=== PATIENT | male | born 1955 | race Caucasian/White ===

== ENCOUNTER 2020-08-20 14:20 | Outpatient (CLI) | payer MEDICARE, OTHER, SELFPAY ==
--- NOTE | ~2020-08-20 | XR_ITS ---
EXAMINATION:[id number] DATE: 08/20/2020 15:34 INDICATION: Neck pain TECHNIQUE: AP, lateral, lateral swimmers and odontoid views of the cervical spine are provided. COMPARISON: None FINDINGS: There are 3 mm of retrolisthesis of C5 on C6. The odontoid is intact. No fracture is identi fied. There is moderate loss of intervertebral disc space height at C5-6. The vertebral body heights are normal. Degenerative osteophytes project from the anterior endplates of multiple vertebral bodies . There is moderate facet osteoarthritis at C2-3 and moderate to severe uncovertebral joint osteoarth ritis at C5-6. Prevertebral soft tissues are normal. IMPRESSION: 1. Moderate cervical spondylosis without acute findings. Reviewed, dictated and finalized at location A.
--- NOTE | ~2020-08-20 | US_ITS ---
EXAMINATION: US venous doppler LE EXAM DATE: 08/20/2020 15:26 INDICATION: Left leg pain and swelling. TECHNIQUE: Multiple grayscale, color flow and Doppler images of the lower extremity deep venous syste ms bilaterally were obtained and reviewed. There is no prior study for comparison. FINDINGS: Right side: The right common femoral, femoral and profunda veins demonstrate normal color flow, respi ratory variation, augmentation and compressibility. Compressibility, color flow confirmed within the right popliteal, posterior tibial, peroneal, and greater saphenous veins. Left side: The left common femoral, femoral and profunda veins demonstrate normal color flow, respira tory variation, augmentation and compressibility. Compressibility, color flow confirmed within the l eft popliteal, posterior tibial, peroneal, and greater saphenous veins. IMPRESSION: 1. No lower extremity deep venous thrombosis bilaterally. Reviewed, dictated and finalized at location B.
== END 2020-08-20 14:21 | disposition home or self-care (01) ==
LOC: ANHIMG 14:31
PROVIDERS: PCP Family Medicine; Visit Provider Physician Assistant Medical
DX: M54.2 Cervicalgia (principal); M47.812 Spondylosis without myelopathy or radiculopathy, cervical region; M79.89 Other specified soft tissue disorders; Z86.718 Personal history of other venous thrombosis and embolism
CPT/HCPCS: 72040; 93970

== ENCOUNTER 2020-09-21 15:06 | Outpatient (CLI) | payer MEDICARE, OTHER, SELFPAY ==
--- NOTE | ~2020-09-21 | US_ITS ---
EXAMINATION: US venous doppler [facility] DATE: 09/21/2020 15:50 INDICATION: Left lower limb erythema. TECHNIQUE: Grayscale ultrasound images without and with compression and Doppler ultrasound images of the left lower extremity veins were obtained. COMPARISON: Ultrasound 08/20/2020 FINDINGS: The visualized portions of left common femoral vein, profunda (deep) femoral vein, femoral vein, popl iteal vein, peroneal veins, and posterior tibial veins are patent. There is thrombus in left greater saphenous vein. IMPRESSION: 1. No deep venous thrombosis. 2. Thrombus in left greater saphenous vein, which is a superficial vein. Reviewed, dictated and finalized at location A. H POLISHER
== END 2020-09-21 15:07 | disposition home or self-care (01) ==
PROVIDERS: PCP Family Medicine; Visit Provider Nurse Practitioner Family
DX: I83.11 Varicose veins of right lower extremity with inflammation (principal); M79.89 Other specified soft tissue disorders; I82.812 Embolism and thrombosis of superficial veins of left lower extremity
CPT/HCPCS: 93971

== ENCOUNTER 2022-02-28 13:25 | Emergency (ER) | payer MEDICARE, OTHER, SELFPAY ==
[2022-02-28 13:40] VITALS: BP 98/65; PULSE 114; RESP 18; TEMP 36.5; O2SAT 97
--- NOTE | 2022-02-28 13:40 | ED.EYEPROB ---
HPI - Eye Problem General Chief complaint: Eye Problems Stated complaint: knot on rt bottom eye lid Time Seen by Provider: 02/28/22 13:40 Source: patient Mode of arrival: ambulatory Limitations: no limitations History of Present Illness HPI Narrative: 66 y/o male presented for c/o red knot to right lower eyelid, onset 2 weeks. States it started out itching then developed into the nodule. Endorses intermittent crusted drainage to eye in the morning. Pain is minimal, continues to report itching. Denies vision changes or FB sensation. Has used OTC Stye ointment but states it is getting bigger, also applying warm compresses to the site. Fady montero MD chief complaint: eye pain Related Data Home Medications Medication Instructions Recorded Confirmed aspirin 81 mg tablet,delayed 81 mg PO DAILY 11/08/19 02/28/22 release quinapril 20 mg PO DAILY 02/28/22 Allergies Allergy/AdvReac Type Severity Reaction Status Date / Time No Known Allergies Allergy Verified 02/28/22 13:48 Review of Systems Review of Systems: CONSTITUTIONAL: Denies body aches, fever, chills EYES:Endorses swelling, redness and pain to right lower eye; denies FB sensation, photophobia, or visual changes ENT: Denies rhinorrhea, congestion, sore throat, or otalgia. CARDIOVASCULAR: Denies chest pain, palpitations RESPIRATORY: Denies cough or dyspnea. GASTROINTESTINAL: Denies abdominal pain, nausea, vomiting, or diarrhea. SKIN: Denies rash, itching, or wounds. MUSCULOSKELETAL: Denies back pain, joint pain, or myalgia. NEUROLOGIC: Denies headache, numbness, tingling, or weakness. PSYCH: Denies depression or anxiety. All systems reviewed & are unremarkable except as noted in HPI and below [facility] Past Medical History Medical History BMI 33.0-33.9,adult BMI 34.0-34.9,adult BMI 35.0-35.9,adult Essential (primary) hypertension Herpes zoster without complication Mixed hyperlipidemia Stage 4 chronic kidney disease Testicular hypofunction Thrombophlebitis Type 2 diabetes mellitus without complications Varicosities of leg Family History Family History Mother Hypertension Family history of diabetes mellitus in first degree relative History of kidney cancer Father Family history of lung cancer Family history of coronary artery disease Sibling Diabetes mellitus Cervical cancer Daughter No problems noted. Other Family history of heart disease in male family member before age 55 Social History Social History Alcohol intake: never Additional occupation/education comments: [employer] Gender identity (if verbalized by the patient): Male Comments At time of signature, I have reviewed and agree with nursing past medical, surgical, social and family history unless otherwise noted. Please see nursing chart for further information. There is no relevant family history pertinent to the presenting complaint Exam Narrative: GENERAL: Well-appearing, well-nourished HEAD: Normocephalic, atraumatic. EYES: right external lower eye lid nodule approx 0.5cm diameter c/w stye, firm/nontender, appears to be pushing into the internal lower eyelid surface, no active drainage, Right lower palpebral conjunctival injection. PERRLA, EOMI. Lid eversion showed no FB. ENT: Mucous membranes pink and moist. No rhinorrhea. TMs normal bilaterally. Throat normal. Uvula midline. NECK: Normal AROM. Supple. CHEST: No respiratory distress. Clear to auscultation. HEART: Regular rate and rhythm. ABDOMEN: Soft, nontender, nondistended MUSCULOSKELETAL: No bony tenderness. EXTREMITIES: Normal range of motion. SKIN: Warm, dry, no rash. Normal skin turgor. NEURO: No focal deficits. Alert and oriented x3. PSYCH: Normal affect. Course C
== END 2022-02-28 13:57 | disposition home or self-care (01) ==
PROVIDERS: Emergency Provider Nurse Practitioner Family; PCP Family Medicine
DX: H00.012 Hordeolum externum right lower eyelid (principal); E78.2 Mixed hyperlipidemia; I12.9 Hypertensive chronic kidney disease with stage 1 through stage 4 chronic kidney disease, or unspecified chronic kidney disease; E11.22 Type 2 diabetes mellitus with diabetic chronic kidney disease; N18.4 Chronic kidney disease, stage 4 (severe)
CPT/HCPCS: 99213; G0463

== ENCOUNTER 2022-06-03 07:33 | Outpatient (CLI) | payer MEDICARE, OTHER, SELFPAY ==
--- NOTE | 2022-06-03 07:49 | ECHO_ITS ---
Patient Info Name: Jose Miguel Blevins Age: 66 years : 1955 Gender: Male Ht: 70 in Wt: 234 lbs BSA: 2.32 m2 HR: 93 bpm BP: 121 / 85 mmHg Technical Quality: Good Exam Date: 06/03/2022 8:20 AM Exam Location: [facility] Patient Status: Outpatient Admit Date: 06/03/2022 Staff Ordering Physician: Naresh Johnson MD Sewage Plant Supervisor: Tiffanie Ferrara RDCS Attending Provider: PHYSICIAN, AUDIOLOGY ASSISTANT Referring Physician: Alex ASH; Exam Type: CA echo doppler color flow Study Info Indications R00.0 - Tachycardia, unspecified Complete two-dimensional, color flow and Doppler transthoracic echocardiogram is performed. Summary 1. Complete two-dimensional, color flow and Doppler transthoracic echocardiogram is performed. 2. Mild LVH, LV size is at upper limits of normal; normal LV systolic function, ejection fraction about 60-65%, global longitudinal strain is abnormal at -14%. Normal mitral valve structure, trivial MR. Normal aortic valve structure, no stenosis. Trivial TR, mild pulmonary hypertension, RVSP 43 mmHg. Left Ventricle Left ventricular chamber dimension is normal. Left ventricular systolic function is normal, estimated at 60-65%. There is mildly increased left ventricular wall thickness. Right Ventricle Right ventricular chamber dimension is normal. Right ventricular systolic function is normal. Left Atria Left atrial chamber dimension is normal. Right Atria Right atrial chamber dimension is normal. Aortic Valve The aortic valve is normal. There is no aortic valve stenosis. Pulmonic Valve The pulmonic valve is normal. Mitral Valve The mitral valve has normal leaflets. There is trace mitral valve regurgitation. Tricuspid Valve The tricuspid valve leaflets are normal. There is trace tricuspid valve regurgitation. Mild pulmonary hypertension, estimated pulmonary arterial systolic pressure is 43 mmHg. Pericardium/Pleural The pericardium appears epicardial fat pad. There is no pericardial effusion. Inferior Vena Cava Normal inferior vena cava with >50% collapse upon inspiration consistent with normal right atrial pressure, 10 mmHg. Aorta The aortic root size at the sinus of Valsalva is normal. Left Ventricular Outflow Tract Name Value Normal LVOT 2D LVOT Diameter 2.1 cm LVOT Doppler LVOT Peak Velocity 90 cm/s LVOT Peak Gradient 3 mmHg LVOT Mean Gradient 2 mmHg LVOT VTI 15 cm LVOT VTI/AV VTI Ratio 1.0 LVOT Stroke Volume 52 ml LVOT CO 4.7 l/min LVOT CI 2.0 l/min/m2 Pulmonic Valve Name Value Normal RVOT Doppler RVOT Peak Gradient 1 mmHg
--- NOTE | 2022-06-05 11:38 | WPDHOLTEREM ---
Holter/Event Monitor Holter/Event Monitor Date of procedure: 06/05/22 Holter/Event Procedure: 24 Hr Holter Monitor Diagnosis: Unspecified tachycardia Indications: Unspecified tachycardia Image/Tracing Quality: Good Finding: Patient was monitored for 24 hours. Average heart rate was 101 beats per minute with minimum heart rate 52 beats per minute reported at 6:27 a.m. and maximum heart rate 158 beats per minute. There were a total of 59 ventricular ectopic beats. Patient was in atrial fibrillation or flutter in 100% of the times. Longest pause 1.8 seconds. Patient did not report significant symptoms. Conclusion: Atrial fibrillation/flutter as described above. Patient was asymptomatic during the recording period.
== END 2022-06-03 07:34 | disposition home or self-care (01) ==
LOC: ANHCARD 07:38
PROVIDERS: PCP Family Medicine; Visit Provider Family Medicine
DX: R00.0 Tachycardia, unspecified (principal); R06.00 Dyspnea, unspecified; I48.92 Unspecified atrial flutter
CPT/HCPCS: 93225; 93226; 93306

== ENCOUNTER 2022-07-01 10:24 | Emergency (ER) | payer MEDICARE, OTHER, SELFPAY ==
--- NOTE | ~2022-07-01 | XR_ITS ---
XR hip RT min 2V 07/01/2022 10:53 Indication: Right hip pain Procedure: 2 views right hip Comparison: No prior studies for comparison. Findings: There is anatomic alignment. No significant joint space narrowing. No soft tissue abnormali ty. No foreign bodies. No fracture or traumatic malalignment. Impression: 1: No significant bone or joint abnormality. Reviewed, dictated and finalized at location B. Impression: 1: No significant bone or joint abnormality.
[2022-07-01 10:35] VITALS: BP 120/79; PULSE 82; RESP 18; TEMP 36.5; O2SAT 98
--- NOTE | 2022-07-01 11:04 | ED.LOWEXIN ---
HPI - Extremity Injury (Lower) General Chief Complaint: Extremity Injury, Lower Stated Complaint: right side leg,hip pain Source: patient, RN notes reviewed and old records reviewed Mode of arrival: ambulatory History of Present Illness HPI Narrative: 66 year old male who presents to [facility] with pain to right upper thigh below buttock.Patient reports that he was pushing his right shoe off with left foot after going golfing and felt pain to area below right buttock a few weeks ago. He reports yesterday he was moving some boxes at home and felt a pop in the same area. Patient reports that he has taken Tylenol and rates his pain as 8/10 constant ache. Patient denies any pain to lower back, along spinal area or in SI joint region. Patient reports that he does have new onset of atrial flutter and was started on Eliquis on 06/20/[address]22 by alley worker. complaint: other (pain to right upper medial thigh below buttock) Onset (ago): week(s) (few weeks ago with increased intensity since yesterday) Severity scale (1-10): 8 Treatments prior to arrival: other (Tylenol) Related Data Home Medications Medication Instructions Recorded Confirmed apixaban 5 mg tablet (Eliquis) 5 mg DIRECTED 07/01/22 07/01/22 metoprolol tartrate 25 mg tablet 25 mg DIRECTED 07/01/22 07/01/22 Allergies Allergy/AdvReac Type Severity Reaction Status Date / Time No Known Allergies Allergy Verified 05/02/22 10:26 Review of Systems Review of Systems: CONSTITUTIONAL: Denies fever, chills, or sweats. EYES: Denies visual changes, redness, or discharge. ENT: Denies rhinorrhea, congestion, sore throat, or otalgia. CARDIOVASCULAR: Denies chest pain, palpitations, or edema. RESPIRATORY: Denies cough or dyspnea. GASTROINTESTINAL: Denies abdominal pain, nausea, vomiting, or diarrhea. GENITOURINARY: Denies dysuria or hematuria. SKIN: Denies rash or itching. MUSCULOSKELETAL: Denies back pain, joint pain, or myalgia, positive for pain to right posterior upper thigh below buttock NEUROLOGIC: Denies headache, numbness, or weakness. PSYCHIATRIC: Denies anxiety or depression. All systems reviewed & are unremarkable except as noted in HPI and below [facility] Past Medical History Medical History (Updated 07/02/22 @ 00:00 by Yari Dacameron) Atrial flutter BMI 33.0-33.9,adult BMI 34.0-34.9,adult BMI 35.0-35.9,adult COVID-19 Dyspnea on exertion Essential (primary) hypertension Herpes zoster without complication Irritable Mixed hyperlipidemia Scalp lesion Stage 4 chronic kidney disease Tachycardia Testicular hypofunction Thrombophlebitis Type 2 diabetes mellitus without complications Varicosities of leg Surgical History Surgical History (Updated 07/02/22 @ 08:14 by Suki Velazquez NP) H/O varicose vein ligation and stripping Hx of umbilical hernia repair Family History Family History Mother Hypertension Family history of diabetes mellitus in first degree relative History of kidney cancer Father Family history of lung cancer Family history of coronary artery disease Sibling Diabetes mellitus Cervical cancer Daughter No problems noted. Other Family history of heart disease in male family member before age 55 Social History Social History Smoking status: Never smoker Alcohol intake: never Additional occupation/education comments: [employer] Gender identity (if verbalized by the patient): Male Comments At time of signature, agree with nursing past medical, surgical, social and family history. There is no relevant family history pertinent to the presenting complaint Exam Narrative: GENERAL: Well-appearing, well-nourished, and in no acute distress. HEAD: Normocephalic, atraumatic. EYES: PERRLA and EOMI. ENT: Nares clear, no rhinorrhea or epistaxis. Mucous memb
== END 2022-07-01 11:41 | disposition home or self-care (01) ==
PROVIDERS: Emergency Provider Registered Nurse; PCP Family Medicine
DX: M79.651 Pain in right thigh (principal); I10 Essential (primary) hypertension; E78.2 Mixed hyperlipidemia; I12.9 Hypertensive chronic kidney disease with stage 1 through stage 4 chronic kidney disease, or unspecified chronic kidney disease; E11.22 Type 2 diabetes mellitus with diabetic chronic kidney disease; N18.4 Chronic kidney disease, stage 4 (severe); I80.9 Phlebitis and thrombophlebitis of unspecified site
CPT/HCPCS: 73502; 99213; G0463

== ENCOUNTER → 2022-07-14 11:12 | Outpatient (CLI) | payer MEDICARE, OTHER, SELFPAY ==
--- NOTE | ~2022-07-14 | XR_ITS ---
XR femur RT min 2V DATE: 07/14/2022 11:53 INDICATION: Right thigh pain TECHNIQUE: AP and lateral views of right femur COMPARISON: 07/01/2022 right hip FINDINGS: No fracture or dislocation, avascular necrosis or bone destruction of the right femur is de tected. Mild to moderate osteoarthritis at the right knee. IMPRESSION: Osteopenia Right knee osteoarthritis Reviewed, dictated and finalized at location B.
== END ==
PROVIDERS: PCP Family Medicine; Visit Provider Nurse Practitioner Family
DX: M85.851 Other specified disorders of bone density and structure, right thigh (principal); M17.11 Unilateral primary osteoarthritis, right knee
CPT/HCPCS: 73552

== ENCOUNTER 2022-07-28 03:08 | Day surgery (SDC) | payer MEDICARE, OTHER, SELFPAY ==
[2022-07-25 14:46] VITALS: BMI 33.7
[2022-07-28] VITALS (14 sets, daily range): BP systolic 91–125; BP diastolic 64–83; PULSE 67–91; RESP 12–21; TEMP 36.2; O2SAT 93–98; BMI 34.2
--- NOTE | 2022-07-28 07:00 | ECG_ITS ---
Measurements Intervals [place] Rate: 65 P: 50 ND: 251 QRS: 48 QRSD: 90 T: 35 QT: 375 QTc: 392 Interpretive Statements SINUS RHYTHM WITH FIRST DEGREE AV BLOCK DELAYED PRECORDIAL R/S TRANSITION ABNORMAL ECG COMPARED TO ECG 07/28/2022 07:25:25 SINUS RHYTHM NOW PRESENT FIRST DEGREE AV BLOCK NOW PRESENT Electronically Signed On 07-28-2022 12:29:19 CDT by Kevin Portillo D.O.
[2022-07-28 08:04] LABS: Anion Gap 15 mmol/L (8-16); Blood Urea Nitrogen 29 mg/dL (9-20); Calcium 9.6 mg/dL (8.4-10.2); Carbon Dioxide 21 mmol/L (22-30); Chloride 101 mmol/L (98-107); Estimated CRCL calculation 50 ml/min; Estimated Glomerular Filt Rate 43; Glucose 158 mg/dL (65-110); Magnesium 1.5 mg/dL (1.6-2.3); Potassium 4.6 mmol/L (3.4-5.0); Sodium 137 mmol/L (137-145)
[2022-07-28] MEDS: SODIUM CHLORIDE 0.9% IV 1,000 ML 30 ML IV CONT (08:20)
--- NOTE | 2022-07-28 08:45 | ECG_ITS ---
Measurements Intervals [place] Rate: 95 P: [place]: 0 QRS: -52 QRSD: 94 T: 32 QT: 353 QTc: 446 Interpretive Statements ATRIAL FLUTTER WITH NORMAL VENTRICULAR RATE LEFT ANTERIOR FASCICULAR BLOCK [QRS AXIS <= -45, QR IN I, RS IN II] INFERIOR INFARCT, AGE INDETERMINATE BASELINE ARTIFACT- II, III ABNORMAL ECG NO PREVIOUS ECG AVAILABLE FOR COMPARISON Electronically Signed On 07-28-2022 7:56:04 CDT by Kevin Portillo D.O.
--- NOTE | 2022-07-28 08:55 | WPDMODSED ---
Moderate Sedation Note-Pt Data Patient Data Diagnosis: Atrial flutter Present Complaint: Fatigue History and physical update: Patient is a pleasant 66-year-old male with history of FRANCISCO on CPAP, CKD stage 3, hypertension, hyperlipidemia, and diabetes mellitus with recent diagnosis atrial flutter of unknown duration started on anticoagulation and metoprolol who has been anticoagulated without interruption for greater than 4 weeks. He is referred for outpatient elective electrical cardioversion. He has brought his CPAP unit from home to utilize during procedure. Impression/plan of care: Atrial flutter-elective electrical cardioversion. Recommendations to follow. Discussed outpatient referral for ablation with recurrence or unacceptable symptoms. Continue systemic anticoagulation without interruption and particular for the next 30 days post cardioversion to reduce embolic stroke risk. Hypomagnesemia-2 g IV magnesium supplementation FRANCISCO on CPAP-CPAP unit to be worn during procedure. Anticipate discharge home post procedure with post anesthesia precautions. All questions answered to patient's satisfaction. Procedure to be performed/Plan: Elective electrical cardioversion Allergies Allergy/AdvReac Type Severity Reaction Status Date / Time No Known Allergies Allergy Verified 07/28/22 07:43 Home Medications Medication Instructions Recorded Confirmed Type blood sugar diagnostic #100 ea 06/04/21 07/25/22 Rx blood sugar diagnostic #100 ea 06/06/21 07/25/22 Rx glimepiride 2 mg tablet 2 mg PO BID #180 tabs 01/16/22 07/25/22 Rx lancets (OneTouch UltraSoft #100 ea 02/07/22 07/25/22 Rx Lancets) quinapril 20 mg tablet 20 mg PO DAILY #90 tabs 04/27/22 07/25/22 Rx pioglitazone 15 mg tablet 15 mg PO DAILY #90 tabs 05/02/22 07/25/22 Rx sitagliptin 100 mg-metformin ER 1 tablet PO DAILY #90 tabs 05/02/22 07/25/22 Rx 1,000 mg tablet,extended [id number] (Janumet XR) apixaban 5 mg tablet (Eliquis) 5 mg PO BID 07/01/22 07/28/22 History metoprolol tartrate 25 mg tablet 25 mg PO BID 07/01/22 07/25/22 History omega-3 acid ethyl esters 1 gram 1 cap PO BID #180 caps 07/19/22 07/25/22 Rx capsule (Lovaza) atorvastatin 40 mg tablet 40 mg PO QPM 07/25/22 07/25/22 History cefdinir 300 mg capsule 300 mg PO Q12H #20 caps 07/25/22 07/25/22 Rx ferrous sulfate 27 mg iron tablet 27 mg PO 4XW 07/25/22 07/25/22 History magnesium 250 mg tablet 250 mg PO DAILY 07/25/22 07/25/22 History prasterone (dhea) 25 mg tablet 25 mg PO 3XW 07/25/22 07/25/22 History (DHEA) prednisone 10 mg tablet 30 mg PO DAILY #15 tabs 07/25/22 07/25/22 Rx testosterone cypionate 100 mg/mL 40 mg IM 2XW 07/25/22 07/25/22 History intramuscular oil testosterone enanthate 07/25/22 History testosterone propionate 07/25/22 History tizanidine 2 mg tablet 2 mg PO TID PRN muscle spasticity 07/25/22 07/25/22 Rx #30 tabs Current Medications: Active Medications Sodium Chloride (Normal Saline Iv) 1,000 mls @ 30 mls/hr IV CONT .Q24H GUNJAN Sedation/Anesthesia: No previous sedation/anesthesia problems (including family history). [facility] Past Medical History Medical History Atrial flutter BMI 33.0-33.9,adult BMI 34.0-34.9,adult BMI 35.0-35.9,adult COVID-19 Dyspnea on exertion Essential (primary) hypertension Herpes zoster without complication Irritable Mixed hyperlipidemia Scalp lesion Stage 4 chronic kidney disease Tachycardia Testicular hypofunction Thrombophlebitis Type 2 diabetes mellitus without complications Varicosities of leg Surgical History Surgical History H/O varicose vein ligation and stripping Hx of umbilical hernia repair Family History Family History Mother Hypertension Family history of diabetes mellitus in first degree relative History of kidney cancer Fathe
--- NOTE | 2022-07-28 09:02 | P.PCNCVR_ITS ---
Cardioversion Cardioversion Date of procedure: 07/28/22 Procedure: Elective electrical cardioversion Pre-op diagnosis: Atrial flutter Post-op diagnosis: Same Indications: Atrial flutter Description of procedure: Brief history present illness: Patient is a pleasant 66 yo WM DM, HTN, hyperlipidemia, atrial flutter referred for elective electrical cardioversion in attempt to restore sinus rhythm. Procedure in detail: After verbal and written informed consent was obtained the patient risks, benefits, and alternatives explained in detail the patient agreed to proceed with the plan of care as outlined above. Patient was evaluated at bedside in the [facility] procedure room. On examination, neck was supple with normal range of motion, no restrictions to opening of the oral cavity, jaw angle and posterior hypopharynx was clear. Lungs were clear to auscultation. Patient was placed in appropriate 30 to 45 degree angle in a supine position. Patient was monitored throughout the study with telemetry, oxygen saturation, end-tidal CO2 monitoring, blood pressure, heart rate, and respirations. Anterior and posterior defibrillator pads placed in the appropriate positions. After confirmation of adequate sedation electrical cardioversion was carried out without complication. Patient tolerated the procedure well without difficulty. Sedation: Moderate Sedation/Anesthesia administration: Patient denied previous intolerance or complications with anesthesia/sedation. Please see sedation note for documentation of the pre-procedure physical examination. A total of 3.5mg intravenous Versed and a total of 75 mcg intravenous Fentanyl in multiple divided doses was utilized for moderate sedation. Sedation start time was 0915 and end time was 0930 for a total of 15 minutes [id number] intra-procedure time. Sedation was administered by a qualified observer Papa Batista RN under my supervision with intra-procedure [id number] observation and management throughout the entirety of the procedure. There were no other issues or complications and patient tolerated the procedure well and sedation protocol well and I was present for the entirety. Findings: Elective electrical cardioversion: After confirmation of adequate sedation and persistence of atrial flutter, 150 joules synched biphasic energy x1 was delivered with immediate samaritan of sinus rhythm. Twelve lead EKG was obtained postprocedure confirming sinus rhythm. Complications: None Conclusion: Successful samaritan of sinus rhythm status post cardioversion with 150 joules synched biphasic energyx1. Continue systemic anticoagulation without interruption especially for the next 30 days post cardioversion. Continue current medical therapy. Twelve lead EKG in 1 week post cardioversion in the office as an outpatient.
--- NOTE | 2022-07-28 09:02 | WPDHPUPDATE1 ---
History and Physical Update Update Date/Time: 07/28/22 09:02 History and Physical has been reviewed, including an updated exam of the patient. There are NO changes in the patient's condition. Risks, benefits, and alternatives have been discussed and questions answered. Patient agrees to proceed with procedure.
[2022-07-28] MEDS: MAGNESIUM SULF 2 GM/WATER 50ML 2 GM/50 ML BAG IVPB (09:06)
== END 2022-07-28 11:45 | disposition home or self-care (01) ==
PROVIDERS: PCP Family Medicine; Visit Provider Internal Medicine Cardiovascular Disease
PROC: 5A2204Z Restoration of Cardiac Rhythm, Single (ICD-10-PCS; principal; 2022-07-28 08:30)
DX: I48.92 Unspecified atrial flutter (principal); I12.9 Hypertensive chronic kidney disease with stage 1 through stage 4 chronic kidney disease, or unspecified chronic kidney disease; E11.22 Type 2 diabetes mellitus with diabetic chronic kidney disease; N18.30 Chronic kidney disease, stage 3 unspecified; E78.2 Mixed hyperlipidemia; Z79.01 Long term (current) use of anticoagulants; G47.30 Sleep apnea, unspecified; Z79.84 Long term (current) use of oral hypoglycemic drugs
CPT/HCPCS: 36415; 80048; 83735; 92960; J2250; J2310; J3010; J3475; J7030

== ENCOUNTER → 2022-07-30 09:24 | Outpatient (CLI) | payer MEDICARE, OTHER, SELFPAY ==
--- NOTE | ~2022-07-30 | DEXA_ITS ---
Bone Density Report Name: GERA CID Age: 66 Sex: Male Ethnicity: White Date of : 1955 Indication: other specified disorders of bone density Referring Provider: Jazmine River Study: Bone densitometry was performed. Exam Date: July 30, 2022 Accession number: [id number] Bone Density: Region BMD T-score Z-score Classification AP Spine (L1-L4) 1.327 2.1 3.0 Normal Femoral Neck (Left) 0.951 0.2 1.3 Normal Total Hip (Left) 1.105 0.5 1.1 Normal Femoral Neck (Right) 0.939 0.1 1.2 Normal Total Hip (Right) 1.124 0.6 1.2 Normal Total Hip Mean 1.115 0.6 1.2 Normal World Health Organization criteria for BMD impression classify patients as: Normal (T-score at or above -1.0), Osteopenia (T-score between -1.0 and -2.5), or Osteoporosis (T-score at or below -2.5). 10-year Fracture Risk: FRAX not reported because: All T-scores for Spine Total, Hip Total, Femoral Neck at or above -1.0 Clinical Information Provided by Patient: Has used the following medications: HRT (i.e. estrogen/hormone therapy), Vitamin D, TESTOSTERONE Patient maximum height was 71 Drinks caffeinated beverages Impression: The patient has normal bone mass. Discussion: BONE DENSITY IS ABOVE THE MINIMUM DESIRABLE LEVEL AT ALL SKELETAL SITES TESTED. This patient?s bone mineral density is above the minimum desirable level (T-score -1.0 or better) at all sites measured. The patient should follow a healthful lifestyle (good nutrition with adequate calcium and vitamin D, and appropriate weight-bearing exercise). Follow-Up: Consider repeating this study in 5 years or sooner if there is some new clinical indication. Reported by: VENTURA on 07/30/2022 10:53:00 AM. Reviewed, dictated and finalized at location ARogelio [facility]Andrew
== END ==
PROVIDERS: PCP Family Medicine; Visit Provider Nurse Practitioner Family
DX: M85.80 Other specified disorders of bone density and structure, unspecified site (principal); M81.8 Other osteoporosis without current pathological fracture; Z13.820 Encounter for screening for osteoporosis; Z91.89 Other specified personal risk factors, not elsewhere classified
CPT/HCPCS: 77080

== ENCOUNTER 2023-01-21 14:30 | Outpatient (RCR) | payer MEDICARE, OTHER, SELFPAY ==
[2022-11-27 11:04] VITALS: BMI 34.4
[2022-11-27 14:07] VITALS: BMI 34.4
== END 2023-02-09 10:53 | disposition home or self-care (01) ==
LOC: ANHDMC 14:30
PROVIDERS: PCP Family Medicine; Visit Provider Family Medicine
DX: E11.65 Type 2 diabetes mellitus with hyperglycemia (principal); Z71.89 Other specified counseling; Z71.3 Dietary counseling and surveillance
CPT/HCPCS: 97802; 99199; G0108; G0109

== ENCOUNTER 2023-04-02 14:46 | Outpatient (RCR) | payer MEDICARE, OTHER, SELFPAY | END 2023-04-06 14:24 | disposition home or self-care (01) | LOC: ANHDMC 14:46 | PROVIDERS: PCP Family Medicine; Visit Provider Family Medicine | DX: E11.65 Type 2 diabetes mellitus with hyperglycemia (principal); Z71.89 Other specified counseling | CPT/HCPCS: G0109 ==

== ENCOUNTER 2024-10-20 10:33 | Outpatient (CLI) | payer MEDICARE, OTHER, SELFPAY ==
--- NOTE | ~2024-10-20 | XR_ITS ---
Right Shoulder Technique: AP and scapular Y views were obtained. Clinical History: Enthesopathy Findings: No fracture or dislocation is seen. Osseous alignment is anatomic. The glenohumeral and acr omioclavicular joint spaces are preserved. Soft tissues are unremarkable. Impression: Unremarkable right shoulder radiographs. Reviewed, dictated and finalized at location . UNITY RESOURCE OFFICER Impression: Unremarkable right shoulder radiographs.
--- NOTE | ~2024-10-20 | XR_ITS ---
AP and lateral views of the right hip Clinical history: Pain Findings: No acute fracture or dislocation is seen. Osseous alignment is anatomic. Right hip joint is intact. Soft tissues are unremarkable. Impression: No significant abnormality is seen. Reviewed, dictated and finalized at location M. S AND MARKETING AGENT Impression: No significant abnormality is seen.
== END 2024-10-20 10:34 | disposition home or self-care (01) ==
PROVIDERS: PCP Family Medicine; Visit Provider Family Medicine
DX: M25.551 Pain in right hip (principal); M77.8 Other enthesopathies, not elsewhere classified; W19.XXXD Unspecified fall, subsequent encounter
CPT/HCPCS: 73030; 73502

== ENCOUNTER 2024-11-13 17:07 | Emergency (ER) | payer MEDICARE, OTHER, SELFPAY ==
--- NOTE | ~2024-11-13 | CT_ITS ---
History: Fall PROCEDURE: CT head without contrast. COMPARISON: None TECHNIQUE: Axial imaging of the head performed from the skull base to the vertex without IV contrast. Sagittal a nd coronal reformations obtained. DLP: 605 mGy-cm FINDINGS: The ventricles are normal in size, shape and position. There is no mass, mass effect or midline shift. There is no abnormal extra-axial fluid collection or intracranial hemorrhage. Air-fluid level within the right maxillary sinus. Remaining paranasal sinuses are clear. The mastoid air cells are well aerated. No acute displaced fractures within the overlying cranium. Impression: No acute intracranial hemorrhage or suspicious mass effect. Inflammatory disease within the right maxillary sinus Reviewed, dictated and finalized at location A. S COUNTRY/TRACK AND FIELD COACH Impression: No acute intracranial hemorrhage or suspicious mass effect. Inflammatory disease within the right maxillary sinus
--- NOTE | ~2024-11-13 | CT_ITS ---
History: Fall PROCEDURE: CT facial bones and cervical spine without intravenous contrast. COMPARISON: None TECHNIQUE: Multiple contiguous axial images of the cervical spine were performed without the administration of i ntravenous contrast. DLP: 517 mGy-cm FINDINGS: Straightening and slight reversal of the normal curvature of the cervical spine is identified, likely muscular in origin. No acute fractures are present. Degenerative disease is noted with osteophyte formation, disc space narrowing, endplate changes and f acet arthropathy Calcified granuloma within the right upper lobe. Remaining Bilateral lung apices are unremarkable. No soft tissue abnormality is present. The airway is unremarkable. Impression: Straightening and slight reversal of the normal curvature of the cervical spine, likely muscular in o rigin. No acute fracture. Reviewed, dictated and finalized at location A. T PICKLE MAKER Impression: Straightening and slight reversal of the normal curvature of the cervical spine , likely muscular in origin. No acute fracture.
[2024-11-13 17:07] VITALS: BP 155/76; PULSE 66; RESP 16; O2SAT 99
--- NOTE | 2024-11-13 19:55 | PC.NURSE ---
pt arrives to ed via pov with c/o of fall around noon 11/13/24. pt visitor has a video of fall. pt was walking around a gym when patient stumbled and lost balance. pt was unable to place ups to protect face from fall. pt hit face/ nose of concrete floor. pt denies loc. pt states that he remembers falling. pt is on zorolto. pt states that he had excessive bleeding from bilateral nares. 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 pt states sports coordinator was able to apply bilateral nasal tissue to help control the bleeding. pt states that staff trainer had to reapply tissues several times. upon arrival patient has bilateral nasal tissue in place with bleeding controlled at this time. pt also has bandaid applied at this time to the right lateral side of nose. pt also has some swelling to the area at this time where patient was wearing his glasses. pt is ao x4 at this time and able to ambulate with a steady unassisted gait to the room from triage.
--- NOTE | 2024-11-13 20:06 | ED_ITS ---
HPI - Fall General Chief Complaint: Fall Stated Complaint: fall Time Seen by Provider: 11/13/24 19:47 Source: patient Mode of arrival: ambulatory Limitations: no limitations History of Present Illness HPI Narrative: This is a 69-year-old male who presents to the ED for chief complaint of low fall that occurred this evening just prior to arrival. Patient was walking on the bleachers at a basketball game when he accidentally tripped. States he fell face 1st and injured his nose. Reports that he is on Xarelto and had a lot of bleeding from the nose but seems to have subsided. Denies LOC, numbness, weakness or any further site of injury. Related Data Home Medications ?Medication ?Instructions ?Recorded ?Confirmed ?Last Taken ?Type metoprolol tartrate 25 mg tablet 25 mg PO BID 07/01/22 10/20/24 07/25/22 History ferrous sulfate 27 mg iron tablet 27 mg PO 4XW 07/25/22 10/20/24 Unknown History prasterone (dhea) 25 mg tablet 25 mg PO 3XW 07/25/22 10/20/24 Unknown History (DHEA) magnesium 250 mg tablet 400 mg PO DAILY 02/27/23 10/20/24 Unknown History rivaroxaban 20 mg tablet (Xarelto) 20 mg PO DAILY 02/27/23 10/20/24 Unknown History multivitamin 1 tablet PO DAILY 07/04/24 10/20/24 Unknown History vit C 250 mg-vit E 200 unit-zinc 1 cap PO .QD 07/04/24 10/20/24 Unknown History ox 12.5 [id number] capsule (ICaps AREDS2) Allergies Allergy/AdvReac Type Severity Reaction Status Date / Time No Known Allergies Allergy Verified 10/20/24 07:28 Review of Systems Review of Systems: All systems as dictated in HPI [facility] Past Medical History Medical History (Updated 11/14/24 @ 00:00 by Background Daemon) Cerumen impaction Otitis media Atrial flutter Irritable Scalp lesion COVID-19 Dyspnea on exertion Tachycardia Testicular hypofunction Herpes zoster without complication Thrombophlebitis Varicosities of leg Essential (primary) hypertension Mixed hyperlipidemia Stage 4 chronic kidney disease Type 2 diabetes mellitus without complications Surgical History Surgical History Hx of umbilical hernia repair H/O varicose vein ligation and stripping Family History Family History Mother Hypertension Family history of diabetes mellitus in first degree relative History of kidney cancer Diabetes mellitus Father Family history of lung cancer Family history of coronary artery disease Sibling Diabetes mellitus Cervical cancer Cerebrovascular accident Daughter No problems noted. 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) Alcohol intake: never Substance use: never Substance use type: does not use Do You Feel Safe in your Home?: Yes Lack of Transportation: No Lack of Food: Never True Current Housing: I Have Housing Concerned About Future Housing: No Difficulty Paying Gas/Electric Bills: No Difficulty Paying for Meds: No Currently Unemployed: No Education: Associate Degree Difficulty w/ Childcare or Family Care: No Living arrangements: with family Occupation/Education: retired Additional occupation/education comments: [employer] Gender identity (if verbalized by the patient): Male Spiritual care concerns: No Exam Narrative: GENERAL: Well-appearing, well-nourished, and in no acute distress. HEAD: Normocephalic, atraumatic. EYES: PERRLA and EOMI. ENT: Mild swelling to the anterior superior nose. No septal hematoma. No active bleeding. No crepitus or deformity Nares clear, no rhinorrhea or epistaxis. Mucous membranes moist. Oropharynx without tonsillar hypertrophy exudate or other lesions. NECK: Supple. No adenopathy or masses. CHEST: No respiratory distress. Clear to auscultation. No wheezes rales or rhonchi HEART: Regular rate and rhythm. No murmur heard. Normal peripheral pulses. ABDOMEN: Soft, nontender, nondistended, normal active bowel sounds. MSK: Normal range of motion. No edema. SKIN: Warm, dry, no rash. NEURO: Alert and oriented x4. No focal deficits. PSYCH: Normal mood and affect. Course Vital Signs Vital signs: Vital Signs Pulse Rate 66 11/13/24 17:07 Respiratory Rate 16 11/13/24 17:07 Blood Pressure 155/76 H 11/13/24 17:07 Pulse Oximetry 99 11/13/24 17:07 Pulse Rate 66 11/13/24 17:07 Respiratory Rate 16 11/13/24 17:07 Blood Pressure 155/76 H 11/13/24 17:07 Pulse Oximetry 99 11/13/24 17:07 MDM - Fall MDM Narrative Medical decision making narrative: 69-year-old male who presents to the ED for head injury/nose injury after ground level fall today. Vitals are normal. Exam remarkable for the above. No neurologic deficits. CT imaging of the facial bones, cervical spine and brain are without acute findings. Patient was given tetanus update. Also given Afrin, loratadine in order to prevent any further epistaxis. Pt will be discharged in stable condition. Return precautions given and supportive measures discussed. Pt is understanding and agreeable with plan for discharge and follow-up with PCP. Discharge Plan Discharge Clinical Impression: Fall, Facial injury, Epistaxis Patient Disposition: Home, Self-Care Condition: Stable Instructions: Antibiotic Form Additional Instructions: Exam and imaging are reassuring today. Please refrain from blowing the nose and take antihistamine such as Zyrtec at home. Follow-up with PCP. Use Tylenol regularly for pain control. If you have any new or worsening symptoms please return to the ER for further evaluation. Patient Language: Pashto Prescriptions: No Action metoprolol tartrate 25 mg tablet 25 mg PO BID multivitamin Tablet 1 tablet PO DAILY ICaps AREDS2 250 mg-200 unit -12.5 mg-1 mg capsule 1 cap PO .QD Mounjaro 7.5 mg/0.5 mL pen injector See Rx Instructions .ROUTE .COMPLEX Qty: 6 3RF Dose Instruction: 7.5 MG (0.5 ML) SUBCUTANEOUSLY WEEKLY Rx Instructions: 7.5 MG (0.5 ML) SUBCUTANEOUSLY WEEKLY Xarelto 20 mg tablet 20 mg PO DAILY prasterone (dhea) [DHEA] 25 mg Tablet 25 mg PO 3XW Patient Comments: alternates with iron sulfate ferrous sulfate 27 mg iron Tablet 27 mg PO 4XW Patient Comments: alternates with DHEA magnesium 250 mg tablet 400 mg PO DAILY (DME) blood sugar diagnostic Strip See Rx Instructions .ROUTE .MEDSUPPLY Qty: 100 3RF Rx Instructions: Daily metformin 500 mg tablet extended release 24 hr 2,000 mg PO DAILY Qty: 360 3RF pioglitazone 30 mg tablet 30 mg PO DAILY Qty: 90 3RF (DME) lancets Misc See Rx Instructions .Route Qty: 100 3RF Rx Instructions: Use daily to assess blood glucose bid benazepril 20 mg tablet 20 mg PO DAILY Qty: 90 1RF glimepiride 2 mg tablet 2 mg PO QAM Qty: 90 1RF (DME) blood sugar diagnostic Strip See Rx Instructions .ROUTE .MEDSUPPLY Qty: 100 2RF Rx Instructions: bid for diabetes atorvastatin 40 mg tablet 40 mg PO QPM Qty: 90 0RF omega-3 acid ethyl esters [Lovaza] 1 gram capsule 1 cap PO BID Qty: 180 1RF Follow-up/Referrals: Naresh Johnson MD [Primary Care Provider] - Time of Disposition: 20:13
[2024-11-13] MEDS: TETANUS,DIPHTHERIA,AC PERTUSSIS ADULT (0.5 ML) BOOSTRIX IM (20:37)
[2024-11-13] MEDS: LORATADINE 10 MG TABLET PO (20:37)
[2024-11-13] MEDS: OXYMETAZOLINE HCL 0.05% NAS 15 ML BTL (*BKC) 1 SPRAY NASAL (20:38)
== END 2024-11-13 20:48 | disposition home or self-care (01) ==
LOC: ANHED 20:17
PROVIDERS: Emergency Provider Physician Assistant; PCP Family Medicine
DX: S09.92XA Unspecified injury of nose, initial encounter (principal); R04.0 Epistaxis; W19.XXXA Unspecified fall, initial encounter; Z79.01 Long term (current) use of anticoagulants; E78.2 Mixed hyperlipidemia; I48.92 Unspecified atrial flutter; N18.4 Chronic kidney disease, stage 4 (severe); I12.9 Hypertensive chronic kidney disease with stage 1 through stage 4 chronic kidney disease, or unspecified chronic kidney disease; E11.22 Type 2 diabetes mellitus with diabetic chronic kidney disease; Z23 Encounter for immunization
CPT/HCPCS: 70450; 70486; 72125; 90471; 90715; 99284; A9270

== ENCOUNTER 2025-04-23 01:27 | Emergency (ER) | payer MEDICARE, OTHER, SELFPAY ==
[2025-04-23] VITALS (7 sets, daily range): BP systolic 101–128; BP diastolic 64–74; PULSE 72–90; RESP 15–20; TEMP 36.5; O2SAT 94–97
--- NOTE | ~2025-04-23 | CT_ITS ---
Clinical Indication: Chest pain, back pain CT Scan of the Chest, Abdomen, and Pelvis with Contrast: Technique: Contiguous sections were acquired throughout the chest, abdomen, and pelvis after intraven ous administration of 100 cc of Omnipaque 350. Dose reduction technique was used on this scan by shauna beltre automated exposure control and iterative reconstruction technique. The dose-length product (DL P) was 1603.58 mGy-cm. Findings: There is no evidence of any significant mediastinal, hilar or axillary lymphadenopathy. The mediastin al soft tissues appear normal. No pulmonary embolus seen. No aortic aneurysm or dissection. There is no evidence of pleural or pericardial effusion. The lungs are clear, aside from mild bibasilar atelectatic change. The liver, spleen, pancreas, gallbladder, adrenals and right kidney are within normal limits. Inaja left kidney is markedly atrophic. No evidence of aortic aneurysm or dissection. No lymphadenopathy. No bowel obstruction or bowel wall thickening. There is no evidence to suggest acute appendicitis. Urinary bladder is unremarkable. No pelvic mass seen. No ascites. Impression: No acute abnormality. Markedly atrophic mechoopda left kidney. Reviewed, dictated and finalized at [facility]. Impression: No acute abnormality. Markedly atrophic mechoopda left kidney.
--- NOTE | ~2025-04-23 | XR_ITS ---
Clinical Indication: Chest pain PA and lateral views of the chest: Comparison: None Findings: The lungs are clear, without evidence of focal consolidation or pleural effusion. Cardiome diastinal silhouette is within normal limits. Bones and soft tissues are unremarkable. Impression: Normal chest. Reviewed, dictated and finalized at location . Impression: Normal chest.
--- NOTE | 2025-04-23 01:28 | ECG_ITS ---
Test Date: 2025-04-23 01:39:13 Measurements Intervals Ethel Rate: 86 P: 38 CO: 242 QRS: 14 QRSD: 88 T: 34 QT: 341 QTc: 409 Interpretive Statements SINUS RHYTHM WITH FIRST DEGREE AV BLOCK BASELINE ARTIFACT- I, II, III, AVR, AVF BORDERLINE ECG No previous ECG available for comparison Electronically Signed On 04-23-2025 07:08:04 CDT by Kevin Portillo D.O.
--- OUTSIDE RECORDS SUMMARY | 2025-04-23 01:29 | XMS_ITS | Clinical Summary ---
Author Organization [facility] Office Center Address [address] [place] [address] Care Team Providers Care Head Tennis Professional Name Role Phone Naresh Johnson MD Primary Care Provider [phone] Allergies No known active allergies Medications pioglitazone (ACTOS) 30 mg tablet 1 tablet (30 mg total) 9 Active omega-3 fatty acids (LOVAZA) 1 gram capsule 0 Active glimepiride (AMARYL) 2 mg tablet 0 Active atorvastatin (LIPITOR) 40 mg tablet 0 Active blood glucose diagnostic (OneTouch Ultra Blue Test Strip) strip USE 1 STRIP TO CHECK GLUCOSE ONCE DAILY 0 Active benazepriL (LOTENSIN) 20 mg tablet 3 Active tirzepatide (MOUNJARO) 7.5 mg/0.5 mL pen injector injection 0.5 mL (7.5 mg total) 3 Active metFORMIN (GLUCOPHAGE) 500 mg tablet Take 1 tablet (500 mg total) by mouth 2 (two) times a day with meals Two tablets in the morning and two tablets in the evening Active rivaroxaban (XARELTO) 20 mg tablet Take 1 tablet (20 mg total) by mouth daily with dinner 90 tablet 3 4 Active metoprolol tartrate (LOPRESSOR) 25 mg immediate release tablet Take 1 tablet by mouth twice daily 180 tablet 5 Active metoprolol tartrate (LOPRESSOR) 25 mg immediate release tablet Take 1 tablet (25 mg total) by mouth 2 (two) times a day 180 tablet 2 4 04/11/20 Discontinued Active Problems Problem Noted Date Diagnosed Date Chronic anticoagulation 09/11/2022 History of cardioversion 07/28/2022 Atrial flutter 06/20/2022 Mixed diabetic hyperlipidemi a associated with type 2 diabetes mellitus 06/20/2022 FRANCISCO on CPAP 06/20/2022 Stage 3 chronic kidney disease 06/20/2022 Varicose veins of bilateral lower extremities wi th pain 11/10/2020 Assessment & Plan (01/28/2021 2:56 PM CDT): Impression: Patient recovering well status post right lower extremity EVLT with thigh store manager ligation. His surgical incisions have healed well. Plan: Continue ongoing compression regimen. Patient follow-up on as-needed basis. Assessment & Plan (11/10/2020 1:03 PM ORDINARY SEAMAN): Patient has recurrence extensive painful varicosities bilateral lower extremity specifically the right leg with an incompetent store manager mid thigh. He has failed conservative measures and I have recommended phlebectomies and store manager ligation right lower extremity. The procedure and all risks have been thoroughly explained. He understands And agrees to proceed Hypertensive chronic kidney disease with stage 1 through stage 4 chronic kidney disease, or unspecified chronic kidney disease 12/18/2015 Type 2 diabetes mellitus without complication Assessment & Plan (11/10/2020 1:02 PM ORDINARY SEAMAN): Currently controlled. Continue Actos and metformin Per PCP recommendations. Hypertension associated with diabetes 05/31/2012 Resolved Problems Problem Noted Date Diagnosed Date Resolved Date Other hyperlipidemia 12/18/2015 023 Overview (10/23/2020): Converted unresolved ICD9, potential mismatch. Assessment & Plan (11/10/2020 1:04 PM ORDINARY SEAMAN): Hyperlipidemia controlled. Continue statin therapy per PCP. Encounters Date Type Department Care Team Description 01/30/2025 8:00 AM CDT Office Visit [facility] Cardiology [address] [place] [address] Jose Miguel Lynn MD Atrial flutter, unspecified type (HCC) (Primary Dx); Need for lipid screening from Last 3 Months Immunizations Immunization Administration Dates Next Due Influenza, Quadrivalent, Spl it, Intramuscular 08/08/2019 Influenza, Split 08/02/2013 Influenza, Trivalent, IM (MDV) 01/14/2017,2015,01/03/2015 Surgical History Surgery Date Site/Laterality Comments VARICOSE VEIN SURGERY HERNIA REPAIR ENDOVENOUS ABLATION SAPHENOU S VEIN W/ LASER Bilateral gsv TONSILLECTOMY CATARACT EXTRACTION 11/16/2016 - 11/15/2017 Medical History Medical History Date Comments Hypertension Diabetes (HCC) Cataract 2017 Sleep apnea 2005 Atrial flutter (HCC) Covid Family History Medical History Relation Name Comments Diabetes Brother Mario Alberto Blevins Cancer Father Beronica Blevins Heart attack Father Beronica Blevins Hypertension Father Beronica Blevins Diabetes Maternal Grandmother Grandma Darlyn Cancer Mother Eduarda Blevins Clotting disorder Mother Eduarda Blevins Diabetes Mother Eduarda Blevins Hypertension Mother Eduarda Blevins Clotting disorder Paternal Grandmother Grandma Gen varicose vein Paternal Grandmother Grandma Gen Cancer Sister 1 Radha Blevins Cervical cancer Sister 1 Radha Blevins Diabetes Sister 1 Radha Blevins Stroke Sister 1 Radha Blevins Cancer Sister 2 Kenia Fu Diabetes Sister 2 Kenia Fu Relation Name Status Comments Brother Mario Alberto Blevins Father Beronica Blevins Maternal Grandmother Grandma Darlyn Mother Eduarda Blevins Paternal Grandmother Grandma Blevins Sister 1 Radha Blevins Alive Sister 2 Kenia Fu Social History Tobacco Use Types Packs/Day Years Used Date Smoking Tobacco: Never Smokeless Tobacco: Never Tobacco Cessation:Counseling Given: Not Answered Alcohol Use Standard Drinks/Week Comments Never 0 (1 standard drink = 0.6 oz pur e alcohol) Sex and Gender Information Value Date Recorded Sex Assigned at Not on file Legal Sex Male 6:06 PM ORDINARY SEAMAN Gender Identity Male 10/30/2020 6:30 PM ORDINARY SEAMAN Sexual Orientation Straight 10/30/2020 6: 30 PM ORDINARY SEAMAN Obstetrics History Last Filed Vital Signs Vital Sign Reading Time Taken Comments Blood Pressure 118/70 01/30/2025 8:03 AM CDT Pulse 75 01/30/2025 8:03 AM CDT Temperature - - Respiratory Rate - - Oxygen Saturation 98% 01/30/2025 8:03 AM CDT Inhaled Oxygen Concentration - - Weight 103.3 kg (227 lb 12.8 oz) 01/30/2025 8:03 AM CDT Height 177.8 cm (5' 10) 01/30/2025 8:03 AM CDT Body Mass Index 32.69 01/30/2025 8:03 AM CDT Plan of Treatment Health Maintenance Due Date Last Done Comments Albumin Creatinine Ratio, Urine 1954 Colon Cancer Screening-Colonoscopy 1954 Depression Screening 1954 Fall Risk Assessment 1955 Hemoglobin A1C 1954 Hepatitis C Screening 1955 eGFR 1955 Dilated Eye Exam 1954 Foot Exam 1954 DTaP/Tdap/Td Vaccine (1 - Tdap) 1965 Hepatitis B Screening 1972 Pneumococcal vaccine 65+ (1 of 2 - PCV) 1973 Zoster Vaccine (1 of 2) 2004 Well Visit 65+ 2019 Influenza Vaccine (Season Ended) 2025 08/24/2023, 08/08/2019, 01/14/2017, Additional history exists Lipid Panel 01/30/2026 01/30/2025, 08/18, 06/13/2022 Procedures Procedure Name Priority Date/Time Associated Diagnosis Comments POCT LIPID PANEL Routine 01/30/2025 9:26 AM CDT Need for lipid screening from Last 3 Months Results * POCT lipid panel (01/30/2025 9:26 AM CDT) Cholesterol, POC <100 mg/dL Comment:GLU = 104 HDL, POC 37 mg/dL Triglycerides, POC 87 mg/dL LDL Cholesterol POC 48 mg/dL Chol/HDL Ratio, POC N/A Non-HDL Cholesterol, POC N/A mg/dL Cholesterol Total, POC <100 mg/dL Capillary blood 01/30/2025 9 :26 AM CDT us Jose Miguel Lynn MD POINT OF CARE TEST ORDER BEATA Final Result from Last 3 Months Insurance MEDICARE [facility] MEDICARE [facility] Care Teams Head Tennis Professional Relationship Specialty Start Date End Date Naresh Johnson MD [address] [place] [address] PCP - General Family Medicine 04/14/24
--- OUTSIDE RECORDS SUMMARY | 2025-04-23 01:29 | XMS_ITS | Clinical Summary ---
Author Organization [facility] Address [address] [place] [address] Phone Care Team Providers Care Candy Cooker Helper Name Role Phone Naresh Johnson MD Primary Care Provider [phone] Allergies No known active allergies Medications glimepiride (AMARYL) 2 MG tablet 2 tabs/caps qday 0 01/03/2015 Active aspirin 81 MG tablet 1 tab/cap qday 07/17/2012 Active quinapril (ACCUPRIL) 20 MG tablet 1 tab/cap qday 07/17/2012 Active pioglitazone (ACTOS) 15 MG tablet 11/16/2018 Active atorvastatin (LIPITOR) 40 MG tablet 11/16/2018 Active ONETOUCH ULTRA test strip USE 1 STRIP TO CHECK GLUCOSE ONCE DAILY 05/08/2020 Active omega-3 acid ethyl esters (LOVAZA) 1 g capsule Take 1 g by mouth 2 (two) times a day 04/18/2021 Active Lancets (onetouch ultrasoft) lancets USE 1 TO CHECK GLUCOSE ONCE DAILY 05/18/2022 Active Janumet XR 100-1000 MG tablet sustained-relea se 24 hour 05/26/2022 Active TESTOSTERONE CYPIONATE & PROP IJ 03/22/2019 Active Active Problems Problem Noted Date Diagnosed Date Varicose veins of bilateral lower extremities wi th pain 11/10/2020 Overview (05/29/2021): Last Assessment & Plan: Patient has recurrence extensive painful varicosities bilateral lower extremity specifically the right leg with an incompetent soil science professor mid thigh. He has failed conservative measures and I have recommended phlebectomies and soil science professor ligation right lower extremity. The procedure and all risks have been thoroughly explained. He understands And agrees to proceed Last Assessment & Plan: Impression: Patient recovering well status post right lower extremity EVLT with thigh soil science professor ligation. His surgical incisions have healed well. Plan: Continue ongoing compression regimen. Patient follow-up on as-needed basis. Chronic kidney disease, stage 3 (moderate) 01/26 Type 2 diabetes mellitus wit h other diabetic kidney complication 01/26/2018 Other hyperlipidemia 12/18/2015 Overview (01/29/2019): Converted unresolved ICD9, potential mismatch. Hypertensive chronic kidney disease with stage 1 through stage 4 chronic kidney disease, or unspecified chronic kidney disease 12/18/2015 Other hyperlipidemia 12/18/2015 Overview (11/28/2020): Converted unresolved ICD9, potential mismatch. Last Assessment & Plan: Hyperlipidemia controlled. Continue statin therapy per PCP. Chronic kidney disease, stage 2 (mild) 2 Small kidney, unspecified 05/31/2012 Essential (primary) hypertension 05/31/2012 Type 2 diabetes mellitus without complication Immunizations Immunization Administration Dates Next Due Influenza Split 08/02/2013 Influenza TIV (IM) 01/14/2017,12/19/2015, 015 Influenza, Injectable, Quadrivalent 08/08/2019 Sars-cov-2, Unspecified 09/24/2021,04/03/2021, Family History Medical History Relation Comments Kidney disease Neg Hx Kidney stone Neg Hx Social History Tobacco Use Types Packs/Day Years Used Date Smoking Tobacco: Never Smokeless Tobacco: Never Alcohol Use Standard Drinks/Week Comments No 0 (1 standard drink = 0.6 oz pur e alcohol) Sex and Gender Information Value Date Recorded Sex Assigned at Male 11/21/2020 6:24 PM [facility] Legal Sex Male 7:42 AM [facility] Gender Identity Male 11/21/2020 6:24 PM [facility] Sexual Orientation Straight 11/21/2020 6: 24 PM [facility] Last Filed Vital Signs Vital Sign Reading Time Taken Comments Blood Pressure 132/78 05/28/2022 9:28 AM CDT Pulse - - Temperature 36.1 C (97 F) 05/28/2022 9:28 AM CDT Respiratory Rate 18 05/28/2022 9:28 AM CDT Oxygen Saturation - - Inhaled Oxygen Concentration - - Weight 107 kg (236 lb 11.2 oz) 05/28/2022 9:28 A M CDT Height 180.3 cm (5' 11) 05/28/2022 9:28 AM CDT Body Mass Index 33.01 05/28/2022 9:28 AM CDT Plan of Treatment Health Maintenance Due Date Last Done Comments Pneumococcal PPSV23/PCV13 65 + Years / Low and Medium Risk (1 of 4 - PCV) 2004 Influenza Vaccine (Season Ended) 2025 01/14/2017, 12/19/2015, 01/03/2015, Additional history [place] [place] [address] MEDICARE [employer] MEDICARE SUPPLEMENT Care Teams Candy Cooker Helper Relationship Specialty Start Date End Date Naresh Johnson MD [address] [place] [address] PCP - General Family Medicine 05/11/19
--- OUTSIDE RECORDS SUMMARY | 2025-04-23 01:29 | XMS_ITS | Referral Summary ---
Author Organization [facility] Address [address] [place] [address] Care Team Providers Care High Speed Warper Tender Name Role Phone Naresh Johnson MD Primary Care Provider [phone] Encounters Date Type Department Care Team Description 01/30/2025 8:00 AM CDT Office Visit [facility] Cardiology [address] [place] [address] Jose Miguel Lynn MD Atrial flutter, unspecified type (HCC) (Primary Dx); Need for lipid screening from Last 3 Months Allergies No known active allergies Medications pioglitazone [...] a day 180 tablet 2 4 04/11/20 25 Discontinued Active Problems Problem Noted Date Diagnosed [...] post right lower extremity EVLT with thigh vp production ligation. His surgical incisions have healed well. Plan: Continue ongoing compression regimen. Patient follow-up on as-needed basis. Assessment & Plan (11/10/2020 1:03 PM EXHIBITION CARVER): Patient has recurrence extensive painful varicosities bilateral lower extremity specifically the right leg with an incompetent vp production mid thigh. He has failed conservative measures and I have recommended phlebectomies and vp production ligation right lower extremity. The procedure and all risks have been thoroughly explained. He understands And agrees to proceed Hypertensive chronic kidney disease with stage 1 through stage 4 chronic kidney disease, or unspecified chronic kidney disease 12/18/2015 Type 2 diabetes mellitus without complication Assessment & Plan (11/10/2020 1:02 PM EXHIBITION CARVER): Currently controlled. Continue Actos and metformin Per PCP recommendations. Hypertension associated with diabetes 05/31/2012 Resolved Problems Problem Noted Date Diagnosed Date Resolved Date Other hyperlipidemia 12/18/2015 023 Overview (10/23/2020): Converted unresolved ICD9, potential mismatch. Assessment & Plan (11/10/2020 1:04 PM EXHIBITION CARVER): Hyperlipidemia controlled. Continue statin therapy per PCP. Immunizations Immunization Administration Dates Next Due Influenza, Quadrivalent, Spl it, Intramuscular 08/08/2019 Influenza, Split 08/02/2013 Influenza, Trivalent, IM (MDV) 01/14/2017,2015,01/03/2015 Social History Tobacco Use Types Packs/Day Years Used Date Smoking Tobacco: Never Smokeless Tobacco: Never Tobacco Cessation:Counseling Given: Not Answered Alcohol Use Standard Drinks/Week Comments Never 0 (1 standard drink = 0.6 oz pur e alcohol) Sex and Gender Information Value Date Recorded Sex Assigned at Not on file Legal Sex Male 6:06 PM [facility] Gender Identity Male 10/30/2020 6:30 PM [facility] Sexual Orientation Straight 10/30/2020 6: 30 PM [facility] Last Filed Vital Signs Vital Sign Reading [...] 01/30/2025 8:03 AM CDT Plan of Treatment Not on file Procedures Procedure Name Priority Date/Time Associated Diagnosis [...] Result from Last 3 Months Insurance MEDICARE [facility] MEDICARE [facility] Care Teams High Speed Warper Tender Relationship Specialty Start Date End Date Naresh Johnson MD [address] [place], [place] [id number] PCP - General Family Medicine 04/14/24
--- OUTSIDE RECORDS SUMMARY | 2025-04-23 01:29 | XMS_ITS | Continuity of Care Document ---
Author Organization [facility] Address [id number] [place] [address] [address] [place] [address] Phone Care Team Providers Care Spearer Name Role Phone Kendall PAVON, Torey Unavailable [...] Providers Copied on Encounter [facility], [address] [address], [place], [place], [id number], tel:[phone] [facility] No Information 7 Kendall Lema. [address], [place], [place], [id number], [place]. tel:[phone] Referring Provider: Torey hobson, [address], [place], [address] . tel:[phone] [facility], [address] [address], [place], [place], [id number], tel:[phone] [facility] No Information 7 Kendall Lema. [address], [address], [place], [place], [id number], [place]. tel:[phone] Referring Provider: Torey hobson, [address], [place], [address] . tel:[phone] [facility], [address] [place] [address], [id number], tel:[phone] [facility] No Information 7 Krishnasamy Torey. [address], [address], [address], [place]. tel:[phone] Referring Provider: Torey hobson, [address], [place], [address] . tel:[phone] OFFICE/OUTPA TIENT VISIT, [facility], [address] [place] [address], [id number], tel:[phone] [facility] No Information Sushilamy Torey. [address], [place], [place], [id number], [place]. tel:[phone] Referring Provider: Torey hobson, [address], [place], [address] . tel:[phone] Family History Family Member Type Diagnosis Age At Onset No Information Payers Payer name Insurance type Covered democrat ID Authordaisy pickett(s) [facility] [id number] Social History Type Description Quantity Date Captured [...]
[2025-04-23 01:51] LABS: Basophils Absolute Auto 0.1 K/mm3 (0.0-0.1); Basophils Percent Auto 0.6 % (0.2-1.2); Eosinophils Absolute Auto 0.4 K/mm3 (0-0.3); Eosinophils Percent Auto 4.4 % (0-4.4); Hemoglobin 12.4 g/dL (14.0-18.0); Immature Granulocyte Absolute 0.02 K/mm3 (0.00-0.031); Immature Granulocyte Percent A 0.2 % (0-0.5); Lymphocytes Absolute Auto 1.52 K/mm3 (0.9-3.2); Lymphocytes Percent Auto 18.7 % (18.3-44.2); Mean Corpuscular HGB Conc 33.5 g/dl (32-36); Mean Corpuscular Hemoglobin 31.4 pg (26-34); Mean Corpuscular Volume 93.7 fl (80-100); Mean Platelet Volume 9.2 fl (7.4-10.4); Monocytes Absolute Auto 0.9 K/mm3 (0.1-0.6); Monocytes Percent Auto 11.6 % (2.6-8.5); Neutrophils Absolute Auto 5.2 K/mm3 (1.3-6.7); Neutrophils Percent Auto 64.5 % (45.5-73.1); Platelet Count Result 231 k/mm3 (150-375); Red Blood Count 3.95 M/mm3 (4.6-6.20); Red Cell Distribution Width 12.7 % (11.5-14.5); White Blood Count 8.1 K/mm3 (4.5-10.0)
[2025-04-23 02:04] LABS: Alanine Aminotransferase 26 U/L (6-50); Albumin Level 4.6 g/dL (3.5-5.1); Alkaline Phosphatase 48 U/L (38-126); Anion Gap 10 mmol/L (4-12); Aspartate Amino Transferase 30 U/L (17-59); Bilirubin,Total 0.8 mg/dL (0.2-1.3); Blood Urea Nitrogen 50 mg/dL (9-20); Calcium 10.3 mg/dL (8.4-10.2); Carbon Dioxide 24 mmol/L (22-30); Chloride 103 mmol/L (98-107); Estimated CRCL calculation 43 ml/min; Estimated Glomerular Filt Rate 38; Glucose 89 mg/dL (65-110); Lipase 266 U/L (23-300); Potassium 4.6 mmol/L (3.4-5.0); Sodium 137 mmol/L (137-145); Total Protein 7.2 g/dL (6.3-8.2)
--- OUTSIDE RECORDS SUMMARY | 2025-04-23 02:06 | XMS_ITS | Referral Summary ---
Author Organization [facility] Address [address] [place] [address] Care Team Providers Care Armature Repairer Name Role Phone Naresh Johnson MD Primary Care Provider [phone] Encounters Date Type Department Care Team Description 01/30/2025 8:00 AM CDT Office Visit [facility] Cardiology [address] [place] [address] Jose Miguel Lynn MD Atrial flutter, unspecified [...] post right lower extremity EVLT with thigh encyclopedia research worker ligation. His surgical incisions have healed well. Plan: Continue ongoing compression regimen. Patient follow-up on as-needed basis. Assessment & Plan (11/10/2020 1:03 PM WEB PRESS JOGGER): Patient has recurrence extensive painful varicosities bilateral lower extremity specifically the right leg with an incompetent encyclopedia research worker mid thigh. He has failed conservative measures and I have recommended phlebectomies and encyclopedia research worker ligation right lower extremity. The procedure and all risks have been thoroughly explained. He understands And agrees to proceed Hypertensive chronic kidney disease with stage 1 through stage 4 chronic kidney disease, or unspecified chronic kidney disease 12/18/2015 Type 2 diabetes mellitus without complication Assessment & Plan (11/10/2020 1:02 PM WEB PRESS JOGGER): Currently controlled. Continue Actos and metformin Per PCP recommendations. Hypertension associated with diabetes 05/31/2012 Resolved Problems Problem Noted Date Diagnosed Date Resolved Date Other hyperlipidemia 12/18/2015 023 Overview (10/23/2020): Converted unresolved ICD9, potential mismatch. Assessment & Plan (11/10/2020 1:04 PM WE[employer] PR[employer] JOGGER): Hyperlipidemia controlled. Continue statin therapy per PCP. [...] on file Legal Sex Male 6:06 PM [employer] [facility] Gender Identity Male 10/30/2020 6:30 PM [facility] [facility] Sexual Orientation Straight 10/30/2020 6: 30 PM [employer] [facility] Last Filed Vital Signs Vital Sign Reading [...] Result from Last 3 Months Insurance MEDICARE [facility] MEDICARE [facility] Care Teams Armature Repairer Relationship Specialty Start Date End Date Naresh Johnson MD [address] [place], [place] [id number] PCP - General Family Medicine 04/14/24
--- OUTSIDE RECORDS SUMMARY | 2025-04-23 02:06 | XMS_ITS | Clinical Summary ---
Author Organization [facility] Address [address] [place] [address] Care Team Providers Care Student Services Director Name Role Phone Naresh Johnson MD Primary Care Provider Allergies No known active allergies Medications pioglitazone [...] post right lower extremity EVLT with thigh community service organization director ligation. His surgical incisions have healed well. Plan: Continue ongoing compression regimen. Patient follow-up on as-needed basis. Assessment & Plan (11/10/2020 1:03 PM GIS ENGINEER): Patient has recurrence extensive painful varicosities bilateral lower extremity specifically the right leg with an incompetent community service organization director mid thigh. He has failed conservative measures and I have recommended phlebectomies and community service organization director ligation right lower extremity. The procedure and all risks have been thoroughly explained. He understands And agrees to proceed Hypertensive chronic kidney disease with stage 1 through stage 4 chronic kidney disease, or unspecified chronic kidney disease 12/18/2015 Type 2 diabetes mellitus without complication Assessment & Plan (11/10/2020 1:02 PM GIS ENGINEER): Currently controlled. Continue Actos and metformin Per PCP recommendations. Hypertension associated with diabetes 05/31/2012 Resolved Problems Problem Noted Date Diagnosed Date Resolved Date Other hyperlipidemia 12/18/2015 023 Overview (10/23/2020): Converted unresolved ICD9, potential mismatch. Assessment & Plan (11/10/2020 1:04 PM GIS ENGINEER): Hyperlipidemia controlled. Continue statin therapy per PCP. Encounters Date Type Department Care Team Description 01/30/2025 8:00 AM CDT Office Visit [facility] Cardiology [address] [place] [address] Jose Miguel Lynn MD Atrial flutter, unspecified [...] on file Legal Sex Male 6:06 PM GIS ENGINEER Gender Identity Male 10/30/2020 6:30 PM GIS ENGINEER Sexual Orientation Straight 10/30/2020 6: 30 PM GIS ENGINEER Obstetrics History Last Filed Vital Signs Vital [...] Result from Last 3 Months Insurance MEDICARE [facility] MEDICARE [facility] Care Teams Student Services Director Relationship Specialty Start Date End Date Naresh Johnson MD [address] [place] [address] PCP - General Family Medicine 04/14/24
--- OUTSIDE RECORDS SUMMARY | 2025-04-23 02:06 | XMS_ITS | Clinical Summary ---
Author Organization [facility] Address [address] [place] [address] Phone Care Team Providers Care Multi Media Specialist Name Role Phone Naresh Johnson MD Primary Care Provider [phone] Allergies No known active allergies Medications glimepiride [...] specifically the right leg with an incompetent director of community life mid thigh. He has failed conservative measures and I have recommended phlebectomies and director of community life ligation right lower extremity. The procedure and all risks have been thoroughly explained. He understands And agrees to proceed Last Assessment & Plan: Impression: Patient recovering well status post right lower extremity EVLT with thigh director of community life ligation. His surgical incisions have healed well. [...] Sex Assigned at Male 11/21/2020 6:24 PM [facility] Legal Sex Male 7:42 AM [facility] Gender Identity Male 11/21/2020 6:24 PM [facility] Sexual Orientation Straight 11/21/2020 6: 24 PM [facility] Last Filed Vital Signs Vital Sign Reading [...] 12/19/2015, 01/03/2015, [place] [address] MEDICARE [employer] [place] MEDICARE SUPPLEMENT Care Teams Multi Media Specialist Relationship Specialty Start Date End Date Naresh Johnson MD [address] [place] [address] PCP - General Family Medicine 05/11/19
--- OUTSIDE RECORDS SUMMARY | 2025-04-23 02:06 | XMS_ITS | Continuity of Care Document ---
Author Organization [facility] Address [address] [place] [address] [address] [place] [address] Phone Care Team Providers Care Seed Mill Superintendent Name Role Phone Kendall PAVON, Torey Unavailable [...] Providers Copied on Encounter [facility], [address] [address], [place], [place], [id number], tel:[phone] [facility] No Information 7 Kendall Lema. [address], [place], [place], [id number], [place]. tel:[phone] Referring Provider: Torey hobson, [address], [place], [address] . tel:[phone] [facility], [address] [address] [address], [place], [place], [id number], tel:[phone] [facility] No Information 7 Kendall Lema. [address], [place], [place], [address], [place]. tel:[phone] Referring Provider: Torey hobson, [address], [place], [address] . tel:[phone] [facility], [address] [place] [address], [id number], tel:[phone] [facility] No Information 7 Krishnasamy Torey. [address], [address], [id number], [place]. tel:[phone] Referring Provider: Torey hobson, [address], [place], [address] . tel:[phone] OFFICE/OUTPA TIENT VISIT, [facility], [address] [place] [address], [id number], tel:[phone] [facility] No Information Sushilamy Torey. [address], [place], [place], [id number], [place]. tel:[phone] Referring Provider: Torey hobson, [address], [place], [address] . tel:[phone] Family History Family Member Type Diagnosis Age At Onset No Information Payers Payer name Insurance type Covered democrat ID Authordaisy pickett(s) [facility] [id number] Social History Type Description Quantity Date Captured [...]
[2025-04-23 02:13] LABS: INR 1.7; Prothrombin Time 19.5 Seconds (11.1-14.7)
[2025-04-23 02:14] LABS: Partial Thromboplastin Time 38.4 Seconds (22.3-36.8)
[2025-04-23] MEDS: ASPIRIN 81 MG CHEWABLE TABLET 324 MG PO (02:14)
[2025-04-23 02:15] LABS: Troponin I < 0.012 ng/mL (0.000-0.034)
[2025-04-23] MEDS: MORPHINE SULFATE (*CRX) 4 MG/ML INJ IV PUSH (03:17)
--- NOTE | 2025-04-23 04:22 | ED.CHESTPAIN ---
HPI - Chest Pain General Chief Complaint: Chest Pain Stated Complaint: chest pain, back pain Time Seen by Provider: 04/23/25 01:55 History of Present Illness HPI narrative: 69-year-old male with history of hypertension and hyperlipidemia as well as CKD and diabetes patient takes metoprolol and Xarelto for atrial flutter paroxysmal. Patient presents to the emergency depart with left-sided chest pain radiating towards his back. Worsens with cough and with movement. States he feels slightly congested but denies any shortness a breath, nausea, vomiting. No history of cardiac disease, cardiac stents or aortic disease or any thromboembolic disease such as DVT/PE. No trauma or injury. He was otherwise in his normal state of health. Symptoms on and off for the last week but chest pain worsened yesterday night and into today. Related Data Home Medications ?Medication ?Instructions ?Recorded ?Confirmed ?Last Taken ?Type metoprolol tartrate 25 mg tablet 25 mg PO BID 07/01/22 11/30/24 07/25/22 History ferrous sulfate 27 mg iron tablet 27 mg PO 4XW 07/25/22 11/30/24 Unknown History prasterone (DHEA) 25 mg tablet 25 mg PO 3XW 07/25/22 11/30/24 Unknown History (DHEA) magnesium 250 mg tablet 400 mg PO DAILY 02/27/23 11/30/24 Unknown History rivaroxaban 20 mg tablet (Xarelto) 20 mg PO DAILY 02/27/23 11/30/24 Unknown History multivitamin 1 tablet PO DAILY 07/04/24 11/30/24 Unknown History vit C 250 mg-vit E 200 unit-zinc 1 cap PO .QD 07/04/24 11/30/24 Unknown History ox 12.5 ed-ymqkkt-btkpxb-zeax capsule (ICaps AREDS2) Allergies Allergy/AdvReac Type Severity Reaction Status Date / Time No Known Allergies Allergy Verified 02/27/25 07:33 Review of Systems Review of Systems: As reviewed above in HPI [facility] Past Medical History Medical History Cerumen impaction Otitis media Atrial flutter Irritable Scalp lesion COVID-19 Dyspnea on exertion Tachycardia Testicular hypofunction Herpes zoster without complication Thrombophlebitis Varicosities of leg Essential (primary) hypertension Mixed hyperlipidemia Stage 4 chronic kidney disease Type 2 diabetes mellitus without complications Surgical History Surgical History Hx of umbilical hernia repair H/O varicose vein ligation and stripping Family History Family History Mother Hypertension Family history of diabetes mellitus in first degree relative History of kidney cancer Diabetes mellitus Father Family history of lung cancer Family history of coronary artery disease Sibling Diabetes mellitus Cervical cancer Cerebrovascular accident Daughter No problems noted. 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) Alcohol intake: never Substance use: never Substance use type: does not use Do You Feel Safe in your Home?: Yes Lack of Transportation: No Lack of Food: Never True Current Housing: I Have Housing Concerned About Future Housing: No Difficulty Paying Gas/Electric Bills: No Difficulty Paying for Meds: No Currently Unemployed: No Education: Associate Degree Difficulty w/ Childcare or Family Care: No Living arrangements: with family Occupation/Education: retired Additional occupation/education comments: [employer] Gender identity (if verbalized by the patient): Male Spiritual care concerns: No Exam Narrative: GENERAL: [Well-appearing, well-nourished, and in no acute distress.] HEAD: [Normocephalic, atraumatic.] EYES: [PERRLA and EOMI.] ENT: Nares clear, no rhinorrhea or epistaxis. Mucous membranes moist. NECK: Supple. CHEST: [Clear to auscultation. No respiratory distress.] Reproducible tenderness to palpation of the left-sided chest wall and left-sided posterior chest wall near the scapula without any overlying skin changes HEART: [Regular rate and rhythm]. No murmur heard. [Normal peripheral pulses.] ABDOMEN: [Soft, nondistended], [nontender], [No rigidity or guarding] EXTREMITIES: Normal range of motion. [No edema.] SKIN: Warm, dry, no rash. NEURO: [No focal deficits]. Alert and oriented [x3.] PSYCH: [Normal mood and affect.] Course Vital Signs Vital signs: Vital Signs Temperature 36.5 C 04/23/25 01:34 Respiratory Rate 20 04/23/25 01:34 Blood Pressure 128/74 04/23/25 01:34 Pulse Oximetry 94 04/23/25 01:34 Oxygen Delivery Room Air 04/23/25 01:34 Temperature 36.5 C 04/23/25 01:34 Respiratory Rate 20 04/23/25 01:34 Blood Pressure 128/74 04/23/25 01:34 Pulse Oximetry 94 04/23/25 01:34 Oxygen Delivery Room Air 04/23/25 01:34 MDM - Chest Pain MDM Narrative Medical decision making narrative: 69-year-old male presenting with left-sided chest pain radiating towards his back. Worse with movement, cough and with reproducible sensation on palpation. Patient states that he is not having any shortness a breath, nausea, vomiting, abdominal pain. He has reassuring vital signs within normal blood pressure, normal pulse, no fever, hypoxia. Overall well-appearing not any distress. Suspicion presently is for musculoskeletal chest and back pain, pneumonia, pneumothorax, cardiac event such as ACS or thromboembolic event such as PE or dissection but less likely given his normal vital signs and overall benign appearance. He does take Xarelto for atrial flutter metoprolol for rate control. CBC, CMP, lipase, troponin, EKG, chest x-ray and CT angiography of the chest abdomen pelvis was ordered. Patient provide analgesia and re-evaluated. CT angiography shows no evidence dissection or aneurysm, no pulmonary contusion or pneumothorax, no traumatic fractures or malalignments, no visceral injury. Laboratory studies are all reassuring without any leukocytosis or significant anemia. Normal platelet count. Chemistry panel shows normal electrolytes. BUN and creatinine around baseline GFR. Troponin negative, delta troponin negative, negative lipase. Normal LFTs. EKG shows sinus rhythm with first-degree AV block but no ST segment elevations depressions or inversions. This is stable on repeat EKG. Patient's symptomatology likely secondary to musculoskeletal chest and back pain and he can be safely discharged home at this time with return precautions and PCP follow-up instructions. Medical Records Data Attestation: I reviewed the patient's medical records. Lab Data Attestation: I reviewed the patient's lab results. 04/23/25 01:43 04/23/25 01:43 Labs: Lab Results 04/23/25 04/23/25 04/23/25 Range/Units 01:43 01:44 04:43 WBC 8.1 (4.5-10.0) K/mm3 RBC 3.95 L (4.6-6.20) M/mm3 Hgb 12.4 L (14.0-18.0) g/dL Hct 37.0 L (42.0-52.0) % MCV 93.7 (80-100) fl MCH 31.4 (26-34) pg MCHC 33.5 (32-36) g/dl RDW 12.7 (11.5-14.5) % Plt Count 231 (150-375) k/mm3 MPV 9.2 (7.4-10.4) fl Immature Gran % (Auto) 0.2 (0-0.5) % Neut % (Auto) 64.5 (45.5-73.1) % Lymph % (Auto) 18.7 (18.3-44.2) % King[place] % (Auto) 11.6 H (2.6-8.5) % Eos % (Auto) 4.4 (0-4.4) % Baso % (Auto) 0.6 (0.2-1.2) % Lymph # (Auto) 1.52 (0.9-3.2) K/mm3 [place] # (Auto) 0.9 H (0.1-0.6) K/mm3 Eos # (Auto) 0.4 H (0-0.3) K/mm3 Baso # (Auto) 0.1 (0.0-0.1) K/mm3 Abs Immat Gran (auto) 0.02 (0.00-0.031) K/mm3 Absolute Neuts (auto) 5.2 (1.3-6.7) K/mm3 Absolute Nucleated RBC 0.000 (0.0-0.012) K/mm3 Nucleated RBC % 0.0 (0.0-0.2) % PT 19.5 H (11.1-14.7) Seconds INR 1.7 APTT 38.4 H (22.3-36.8) Seconds Sodium 137 (137-145) mmol/L Potassium 4.6 (3.4-5.0) mmol/L Chloride 103 (98-107) mmol/L Carbon Dioxide 24 (22-30) mmol/L Anion Gap 10 (4-12) mmol/L BUN 50 H D (9-20) mg/dL Creatinine 1.76 H (0.7-1.3) mg/dL Estim Creat Clear Calc 43 ml/min Estimated GFR 38 L (59 - ) Glucose 89 (65-110) mg/dL Calcium 10.3 H (8.4-10.2) mg/dL Total Bilirubin 0.8 (0.2-1.3) mg/dL AST 30 (17-59) U/L ALT 26 (6-50) U/L Alkaline Phosphatase 48 (38-126) U/L Troponin I < 0.012 < 0.012 (0.000-0.034) ng/mL Total Protein 7.2 (6.3-8.2) g/dL Albumin 4.6 (3.5-5.1) g/dL Lipase 266 (23-300) U/L Imaging Data Attestation: I personally reviewed and interpreted this imaging study as follows: My impression: No CTA evidence of aneurysms or dissections, traumatic injury or vessel injury, no pneumothorax,. Chest x-ray shows no acute pulmonary disease. Discharge Plan Discharge Clinical Impression: Chest pain, Pain of left scapula Patient Disposition: Home Condition: Stable Instructions: Antibiotic Form, Chest Pain (ED) Additional Instructions: Your CT scans are all reassuring and there is no acute process in the chest abdomen, back or pelvis. Your cardiac enzymes are undetectable, your EKGs are normal, laboratory studies are at baseline. Your symptoms are likely secondary to musculoskeletal injury or muscle spasm. Take Tylenol and ibuprofen for any aches or pains. Return with any new or worsening concerns otherwise follow-up with regular doctor. Patient Language: Serbian Prescriptions: No Action metoprolol tartrate 25 mg tablet 25 mg PO BID multivitamin Tablet 1 tablet PO DAILY ICaps AREDS2 250 mg-200 unit -12.5 mg-1 mg capsule 1 cap PO .QD Xarelto 20 mg tablet 20 mg PO DAILY prasterone (DHEA) [DHEA] 25 mg Tablet 25 mg PO 3XW Patient Comments: alternates with iron sulfate ferrous sulfate 27 mg iron Tablet 27 mg PO 4XW Patient Comments: alternates with DHEA magnesium 250 mg tablet 400 mg PO DAILY (DME) blood sugar diagnostic Strip See Rx Instructions .ROUTE .MEDSUPPLY Qty: 100 3RF Rx Instructions: Daily (DME) lancets Misc See Rx Instructions .Route Qty: 100 3RF Rx Instructions: Use daily to assess blood glucose bid (DME) blood sugar diagnostic Strip See Rx Instructions .ROUTE .MEDSUPPLY Qty: 100 2RF Rx Instructions: bid for diabetes omega-3 acid ethyl esters [Lovaza] 1 gram capsule 1 cap PO BID Qty: 180 1RF Mounjaro 7.5 mg/0.5 mL pen injector See Rx Instructions .ROUTE .COMPLEX Qty: 6 3RF Dose Instruction: 7.5 MG (0.5 ML) SUBCUTANEOUSLY WEEKLY Rx Instructions: 7.5 MG (0.5 ML) SUBCUTANEOUSLY WEEKLY metformin 500 mg tablet extended release 24 hr 2,000 mg PO DAILY Qty: 360 3RF atorvastatin 40 mg tablet 40 mg PO QPM Qty: 90 0RF benazepril 20 mg tablet 20 mg PO DAILY Qty: 90 1RF glimepiride 2 mg tablet 2 mg PO QAM Qty: 90 1RF pioglitazone 30 mg tablet See Rx Instructions .ROUTE .COMPLEX Qty: 90 0RF Dose Instruction: Take 1 tablet by mouth once daily Rx Instructions: Take 1 tablet by mouth once daily Follow-up/Referrals: Naresh Johnson MD [Primary Care Provider] - Time of Disposition: 06:31
--- NOTE | 2025-04-23 04:44 | ECG_ITS ---
Test Date: 2025-04-23 04:54:10 Measurements Intervals [place] Rate: 73 P: 33 CO: 241 QRS: 12 QRSD: 90 T: 27 QT: 366 QTc: 405 Interpretive Statements SINUS RHYTHM WITH FIRST DEGREE AV BLOCK BORDERLINE ECG Compared to ECG 04/23/2025 01:39:13 No significant changes Electronically Signed On 04-23-2025 07:10:05 CDT by Kevin Portillo D.O.
[2025-04-23 05:17] LABS: Troponin I < 0.012 ng/mL (0.000-0.034)
== END 2025-04-23 06:40 | disposition home or self-care (01) ==
PROVIDERS: Emergency Provider Student in an Organized Health Care Education/Training Program; PCP Family Medicine
DX: R07.9 Chest pain, unspecified (principal); M25.512 Pain in left shoulder; E11.22 Type 2 diabetes mellitus with diabetic chronic kidney disease; I12.9 Hypertensive chronic kidney disease with stage 1 through stage 4 chronic kidney disease, or unspecified chronic kidney disease; N18.4 Chronic kidney disease, stage 4 (severe); I48.92 Unspecified atrial flutter; E78.2 Mixed hyperlipidemia; Z86.16 Personal history of COVID-19; Z77.22 Contact with and (suspected) exposure to environmental tobacco smoke (acute) (chronic); Z79.01 Long term (current) use of anticoagulants; Z79.899 Other long term (current) drug therapy; Z79.85 Long-term (current) use of injectable non-insulin antidiabetic drugs; Z79.84 Long term (current) use of oral hypoglycemic drugs; I44.0 Atrioventricular block, first degree
CPT/HCPCS: 36415; 71046; 71275; 74174; 80053; 83690; 84484; 85025; 85610; 85730; 93005; 96374; 99284; A9270; J2270; Q9967

== ENCOUNTER 2025-04-28 11:16 | Outpatient (CLI) | payer MEDICARE, OTHER, SELFPAY ==
--- NOTE | ~2025-04-28 | XR_ITS ---
Right Shoulder Technique: AP and axillary views were obtained. Clinical History: Enthesopathy Findings: No fracture or dislocation is seen. Osseous alignment is anatomic. The glenohumeral and acr omioclavicular joint spaces are preserved. Soft tissues are unremarkable. Impression: Unremarkable right shoulder radiographs. Reviewed, dictated and finalized at [facility]. Impression: Unremarkable right shoulder radiographs.
--- OUTSIDE RECORDS SUMMARY | 2025-04-28 11:24 | XMS_ITS | Clinical Summary ---
Author Organization [facility] Address [address] [place] [address] Phone Care Team Providers Care Assembler Tubing Name Role Phone Naresh Johnson MD Primary Care Provider [phone] Allergies No known active allergies Medications glimepiride [...] specifically the right leg with an incompetent data coordinator mid thigh. He has failed conservative measures and I have recommended phlebectomies and data coordinator ligation right lower extremity. The procedure and all risks have been thoroughly explained. He understands And agrees to proceed Last Assessment & Plan: Impression: Patient recovering well status post right lower extremity EVLT with thigh data coordinator ligation. His surgical incisions have healed well. [...] Sex Assigned at Male 11/21/2020 6:24 PM [facility] Legal Sex Male 7:42 AM [facility] Gender Identity Male 11/21/2020 6:24 PM [facility] Sexual Orientation Straight 11/21/2020 6: 24 PM [facility] Last Filed Vital Signs Vital Sign [...] 12/19/2015, 01/03/2015, Additional history [place] [address] MEDICARE [employer] [place] MEDICARE SUPPLEMENT Care Teams Assembler Tubing Relationship Specialty Start Date End Date Naresh Johnson MD [address] [place] [address] PCP - General Family Medicine 05/11/19
--- OUTSIDE RECORDS SUMMARY | 2025-04-28 11:24 | XMS_ITS | Continuity of Care Document ---
Author Organization [facility] Address [id number] [place] [address] [address] [place] [address] Phone Care Team Providers Care Material Damage Appraiser Name Role Phone Kendall PAVON, Torey Unavailable [...] Providers Copied on Encounter [facility], [address] [address], [place], [place], [id number], tel:[phone] [facility] No Information 7 Kendall Lema. [address], [address], [place], [place], [id number], [place]. tel:[phone] Referring Provider: Torey hobson, [address], [place], [address] . tel:[phone] [facility], [address] [address], [place], [place], [id number], tel:[phone] [facility] No Information 7 Kendall Lema. [address], [address], [place], [place], [id number], [place]. tel:[phone] Referring Provider: Torey hobson, [address], [place], [address] . tel:[phone] [facility], [address] [place] [address], [id number], tel:[phone] [facility] No Information 7 Krishnasamy Torey. [address], [id number], [place]. tel:[phone] Referring Provider: Torey hobson, [address], [place], [address] . tel:[phone] OFFICE/OUTPA TIENT VISIT, [facility], [address] [place] [address], [id number], tel:[phone] [facility] No Information Sushilamy Torey. [address], [address], [place], [place], [id number], [place]. tel:[phone] Referring Provider: Torey hobson, [address], [place], [address] . tel:[phone] Family History Family Member Type Diagnosis Age At Onset No Information Payers Payer name Insurance type Covered constitution party ID Authordaisy pickett(s) [facility] [id number] Social History Type Description Quantity Date Captured [...]
--- OUTSIDE RECORDS SUMMARY | 2025-04-28 11:24 | XMS_ITS | Referral Summary ---
Author Organization [facility] Address [address] [place] [address] Care Team Providers Care Master Machinist Name Role Phone Naresh Johnson MD Primary Care Provider Encounters Date Type Department Care Team Description 01/30/2025 8:00 AM CDT Office Visit [facility] Card[facility] [address] [place] [address] Jose Miguel Lynn MD Atrial flutter, unspecified [...] post right lower extremity EVLT with thigh medical imaging specialist ligation. His surgical incisions have healed well. Plan: Continue ongoing compression regimen. Patient follow-up on as-needed basis. Assessment & Plan (11/10/2020 1:[address]NAGER): Patient has recurrence extensive painful varicosities bilateral lower extremity specifically the right leg with an incompetent medical imaging specialist mid thigh. He has failed conservative measures and I have recommended phlebectomies and medical imaging specialist ligation right lower extremity. The procedure and all risks have been thoroughly explained. He understands And agrees to proceed Hypertensive chronic kidney disease with stage 1 through stage 4 chronic kidney disease, or unspecified chronic kidney disease 12/18/2015 Type 2 diabetes mellitus without complication Assessment & Plan (11/10/2020 1:[address]NAGER): Currently controlled. Continue Actos and metformin Per PCP recommendations. Hypertension associated with diabetes 05/31/2012 Resolved Problems Problem Noted Date Diagnosed Date Resolved Date Other hyperlipidemia 12/18/2015 023 Overview (10/23/2020): Converted unresolved ICD9, potential mismatch. Assessment & Plan (11/10/2020 1:[address] MANAGER): Hyperlipidemia controlled. Continue statin therapy per PCP. [...] on file Legal Sex Male 6:[address] Gender Identity Male 10/30/2020 6:[address]NAGER Sexual Orientation Straight 10/30/2020 6: [address]NA[address] Last Filed Vital Signs Vital Sign Reading [...] Result from Last 3 Months Insurance MEDICARE [facility] MEDICARE [facility] Address: [address] [address] [place] [address] [facility] Care Teams Master Machinist Relationship Specialty Start Date End Date Naresh Johnson MD [address] [place], [place] [id number] PCP - General Family Medicine 04/14/24
--- OUTSIDE RECORDS SUMMARY | 2025-04-28 11:24 | XMS_ITS | Clinical Summary ---
Author Organization [facility] Address [address] [place] [address] Care Team Providers Care Rubber Roller Grinder Name Role Phone Naresh Johnson MD Primary [...] post right lower extremity EVLT with thigh mold loft worker ligation. His surgical incisions have healed well. Plan: Continue ongoing compression regimen. Patient follow-up on as-needed basis. Assessment & Plan (11/10/2020 1:03 PM RESIDENTIAL FEE APPRAISER): Patient has recurrence extensive painful varicosities bilateral lower extremity specifically the right leg with an incompetent mold loft worker mid thigh. He has failed conservative measures and I have recommended phlebectomies and mold loft worker ligation right lower extremity. The procedure and all risks have been thoroughly explained. He understands And agrees to proceed Hypertensive chronic kidney disease with stage 1 through stage 4 chronic kidney disease, or unspecified chronic kidney disease 12/18/2015 Type 2 diabetes mellitus without complication Assessment & Plan (11/10/2020 1:02 PM RESIDENTIAL FEE APPRAISER): Currently controlled. Continue Actos and metformin Per PCP recommendations. Hypertension associated with diabetes 05/31/2012 Resolved Problems Problem Noted Date Diagnosed Date Resolved Date Other hyperlipidemia 12/18/2015 023 Overview (10/23/2020): Converted unresolved ICD9, potential mismatch. Assessment & Plan (11/10/2020 1:04 PM RESIDENTIAL FEE APPRAISER): Hyperlipidemia controlled. Continue statin therapy per PCP. Encounters Date Type Department Care Team Description 01/30/2025 8:00 AM CDT Office Visit [facility] [address] [place] [address] Jose Miguel Lynn MD Atrial flutter, unspecified [...] Grandma Gen varicose vein Paternal Grandmother Grandma Gne Cancer Sister 1 Radha Blevins Cervical cancer [...] on file Legal Sex Male 6:06 PM RESIDENTIAL FEE APPRAISER Gender Identity Male 10/30/2020 6:30 PM RESIDENTIAL FEE APPRAISER Sexual Orientation Straight 10/30/2020 6: 30 PM RESIDENTIAL FEE APPRAISER Obstetrics History Last Filed Vital Signs Vital [...] Result from Last 3 Months Insurance MEDICARE [facility] MEDICARE [facility] Care Teams Rubber Roller Grinder Relationship Specialty Start Date End Date Naresh Johnson MD [address] [place] [address] PCP - General Family Medicine 04/14/24
== END 2025-04-28 11:17 | disposition home or self-care (01) ==
PROVIDERS: PCP Family Medicine; Visit Provider Nurse Practitioner Family
DX: M77.8 Other enthesopathies, not elsewhere classified (principal)
CPT/HCPCS: 73030

== ENCOUNTER 2025-07-10 07:04 | Outpatient (CLI) | payer MEDICARE, OTHER, SELFPAY ==
--- NOTE | ~2025-07-10 | MR_ITS ---
EXAMINATION: MR shoulder RT wo con DATE: 07/10/2025 08:33 INDICATION: Complete rotator cuff tear post fall with posterior right shoulder pain and difficulty reaching behind back TECHNIQUE: Magnetic resonance imaging (MRI) of the right shoulder was performed without intravenous contrast. Sequences included axial PD-weighted FS FSE, coronal oblique PD-weighted FS FSE, coronal oblique T2-weighted FS FSE, sagittal PD-weighted FS FSE, and sagittal T1-weighted SE. COMPARISON: None. FINDINGS: Coracoacromial arch: The acromion undersurface is flat in morphology (type I). The coracoacromial ligament is normal. Moderate acromioclavicular osteoarthritis. Rotator cuff: Moderate subscapularis tendinopathy and moderate tendinopathy of the conjoined portion of supraspinatus and infraspinatus tendons with mild tendinopathy of the more anterior subcutaneous and posterior infraspinatus tendons. The teres minor tendon is normal. Normal rotator cuff muscle bulk and signal. Biceps tendon, glenoid labrum and glenohumeral cartilage: Long head of the biceps tendon is normal. Amorphous increased signal of the anterosuperior labrum consistent with degeneration. There is likely additional chronic degeneration of the posterior labrum which appears small but without discrete tear. Mild partial-thickness cartilage loss along the posterior superior aspect of the humeral head with deeper cartilage loss along the posterior posterior inferior margin of the humeral head with mild underlying subarticular edema-like signal change. Glenoid cartilage appears relatively preserved. Fluid: Small glenohumeral joint effusion at the axillary recess with proportional centimeters with small amount of fluid along the long head biceps tendon sheath. No loose osteochondral bodies. Mild increased fluid signal in the subacromial/subdeltoid bursa consistent with mild bursitis. Bones: No fracture or pathologic marrow replacing process. Mild cystic change at the cephalad aspect of the lesser tuberosity footplate of the subscapularis tendon likely related to chronic rotator cuff disease. IMPRESSION: 1. Moderate tendinopathy without discrete tear of the subscapularis tendon and conjoined portion of the supraspinatus and infraspinatus tendons. 2. Mild glenohumeral osteoarthritis with likely chronic degeneration along the anterosuperior glenoid labrum and the small posterior labrum. 3. Moderate acromioclavicular osteoarthritis with mild underlying subacromial/subdeltoid bursitis. Reviewed, dictated and finalized at location A. IMPRESSION: 1. Moderate tendinopathy without discrete tear of the subscapularis tendon and conjoined portion of the supraspinatus and infraspinatus tendons. 2. Mild glenohumeral osteoarthritis with likely chronic degeneration along the anterosuperior glenoid labrum and the small posterior labrum. 3. Moderate acromioclavicular osteoarthritis with mild underlying subacromial/s ubdeltoid bursitis.
== END 2025-07-10 07:05 | disposition home or self-care (01) ==
LOC: MICIMG 07:05
PROVIDERS: PCP Family Medicine; Visit Provider Orthopaedic Surgery
DX: M75.121 Complete rotator cuff tear or rupture of right shoulder, not specified as traumatic (principal); M19.011 Primary osteoarthritis, right shoulder
CPT/HCPCS: 73221

== ENCOUNTER 2025-09-23 10:57 | Emergency (ER) | payer MEDICARE, OTHER, SELFPAY ==
--- OUTSIDE RECORDS SUMMARY | 2017-01-01 02:00 | XMS_ITS | Continuity of Care Document ---
Author Organization [facility] Address [id number] [place] [address] [address] [place] [address] Phone Care Team Providers Care Disease Education Specialist Name Role Phone Kendall PAVON, Torey Unavailable Unavaila ble Procedures Procedure Date CATARACT SURG W/IOL, 1 STAGE CATARACT SURG W/IOL, 1 STAGE NON MED NEC IOL PREOP OFFICE/OUTPATIENT VISIT, NEW OPHTHALMIC BIOMETRY OPHTHALMIC BIOMETRY Advance Directives Directive Yes / No Effective Date File Name No Information Encounters Encounter Description Practice Location Reason(s) For Visit Diagnoses Date Provider Providers Copied on Encounter [facility], [address] [facility] [address], [place], [place], [id number], tel:[phone] [facility] No Information 7 Kendall Lema. [address], [address], [place], [place], [id number], [place]. tel:[phone] Referring Provider: Torey hobson, [address], [place], [address] . tel:[phone] [facility], [address] [facility] [address], [place], [place], [id number], tel:[phone] [facility] No Information 7 Kendall Lema. [address], [address], [place], [place], [id number], [place]. tel:[phone] Referring Provider: Torey hobson, [address], [place], [address] . tel:[phone] [facility], [address] [place] [address], [id number], tel:[phone] [facility] No Information 7 Krishnasamy Torey. [address], [address], [place], [id number], [place]. tel:[phone] Referring Provider: Torey hobson, [address], [place], [address] . tel:[phone] OFFICE/OUTPA TIENT VISIT, [facility]NER [facility], [address] [place] [address], [id number], tel:[phone] [facility] No Information Sushilamy Torey. [address], [place], [place], [id number], [place]. tel:[phone] Referring Provider: Torey hobson, [address], [place], [address] . tel:[phone] Family History Family Member Type Diagnosis Age At Onset No Information Payers Payer name Insurance type Covered constitution party ID Authordaisy pickett(s) [facility] [id number] Social History Type Description Quantity Date Captured Comments Sex Male Smoking Status No Information Chief Complaint And Reason For Visit No Information Reason For Referral Reason For Referral No Information History Of Present Illness Encounter Date Complaint History Of Prese nt Illness No Information Functional Status Date Functional Assessmen t No Information Instructions Date Instruction Additional Infor mation No Information Assessments Type Assessment Date No Information Patient Care Teams Name Effective Dates (start - stop) Status Members No Information
[2025-09-23] VITALS (14 sets, daily range): BP systolic 94–124; BP diastolic 51–76; PULSE 68–117; RESP 16–32; TEMP 36.4; O2SAT 97–100
--- NOTE | ~2025-09-23 | XR_ITS ---
Examination: XR chest 2V Clinical History: dizziness X 2-3 WEEKS Comparison: 04/23/2025 Technique: PA and Lateral Findings: Cardiomediastinal silhouette normal size and configuration. Bilateral infrahilar markings probably bronchitis. Lungs otherwise clear. No acute bony abnormality. IMPRESSION: 1. No acute cardiopulmonary findings. Reviewed, dictated and finalized at location R. IFIED SUBSTANCE ABUSE COUNSELOR
--- NOTE | 2025-09-23 12:02 | ECG_ITS ---
Test Date: 2025-09-23 12:11:42 Measurements Intervals Viking Rate: 74 P: 21 GA: 226 QRS: 7 QRSD: 87 T: 39 QT: 355 QTc: 395 Interpretive Statements SINUS RHYTHM WITH FIRST DEGREE AV BLOCK ABNORMAL ECG Compared to ECG 04/23/2025 04:54:10 No significant changes Electronically Signed On 09-23-2025 16:21:41 MANAGER OF SOFTWARE DEVELOPMENT by Osmani Crowe M.D.
[2025-09-23 12:20] LABS: Hematocrit 36.5 % (42.0-52.0); Hemoglobin 12.5 g/dL (14.0-18.0); Immature Granulocyte Percent A 0.5 % (0-0.5); Lymphocytes Absolute Auto 1.02 K/mm3 (0.9-3.2); Mean Corpuscular HGB Conc 34.2 g/dl (32-36); Mean Corpuscular Hemoglobin 31.2 pg (26-34); Mean Corpuscular Volume 91.0 fl (80-100); Nucleated Red Blood Cells Absolute Auto 0.000 K/mm3 (0.0-0.012); Nucleated Red Blood Cells Perc 0.0 % (0.0-0.2); Platelet Count Result 237 k/mm3 (150-375); Red Blood Count 4.01 M/mm3 (4.6-6.20); White Blood Count 7.8 K/mm3 (4.5-10.0)
[2025-09-23 12:43] LABS: Alanine Aminotransferase 21 U/L (6-50); Albumin Level 4.5 g/dL (3.5-5.1); Alkaline Phosphatase 49 U/L (38-126); Anion Gap 9 mmol/L (4-12); Aspartate Amino Transferase 28 U/L (17-59); Bilirubin,Total 1.2 mg/dL (0.2-1.3); Blood Urea Nitrogen 40 mg/dL (9-20); Calcium 10.1 mg/dL (8.4-10.2); Carbon Dioxide 26 mmol/L (22-30); Chloride 95 mmol/L (98-107); Estimated CRCL calculation 41 ml/min; Estimated Glomerular Filt Rate 37; Glucose 96 mg/dL (65-110); Potassium 5.0 mmol/L (3.4-5.0); Sodium 130 mmol/L (137-145); Total Protein 7.1 g/dL (6.3-8.2)
[2025-09-23] MEDS: SODIUM CHLORIDE 0.9% IV 1,000 ML 999 ML IV CONT (13:17)
--- NOTE | 2025-09-23 13:26 | ED.GENADULT ---
HPI - General Adult General Chief complaint: Recheck/Abnormal Lab/Rx Stated complaint: low blood pressure Time Seen by Provider: 09/23/25 12:12 History of Present Illness HPI narrative: Patient is a 69-year-old male who presents to the ER with low blood pressure. Ongoing for a little over 2 weeks. He has decreased his metoprolol and then returned his metoprolol to the normal dosage and then decreased his benazepril without improvement. Systolic blood pressure has been in the 90s and diastolic blood pressure has been in the 50s. Has had generalized fatigue and poor appetite. He gets a little lightheaded when he goes from sitting to standing. No fevers or chills or sweats. No productive cough. No known sick contacts. Related Data Home Medications ?Medication ?Instructions ?Recorded ?Confirmed ?Last Taken ?Type ferrous sulfate 27 mg iron tablet 27 mg PO 4XW 07/25/22 09/18/25 Unknown History magnesium 250 mg tablet 400 mg PO DAILY 02/27/23 09/18/25 Unknown History rivaroxaban 20 mg tablet (Xarelto) 20 mg PO DAILY 02/27/23 09/18/25 Unknown History multivitamin 1 tablet PO DAILY 07/04/24 09/18/25 Unknown History vit C 250 mg-vit E 200 unit-zinc 1 cap PO .QD 07/04/24 09/18/25 Unknown History ox 12.5 [id number] capsule (ICaps AREDS2) metformin 500 mg tablet,extended 1,000 mg PO BID 09/04/25 09/18/25 Unknown History release 24 hr prasterone (DHEA) 25 mg tablet 25 mg PO .3 times a week 09/04/25 09/18/25 Unknown History (DHEA) tirzepatide 7.5 mg/0.5 mL 7.5 mg subcut WEEKLY 09/04/25 09/18/25 Unknown History subcutaneous pen injector (Mounjaro) amoxicillin 500 mg capsule mg PO 09/18/25 09/18/25 Unknown History metoprolol tartrate 25 mg tablet 25 mg PO BID 09/18/25 09/18/25 Unknown History Allergies Allergy/AdvReac Type Severity Reaction Status Date / Time No Known Allergies Allergy Verified 09/18/25 13:27 Review of Systems Review of Systems: All systems reviewed & are unremarkable except as noted in HPI and below Constitutional: Constitutional: Reports no additional constitutional complaints ENT: Reports system reviewed and no additional complaints, except as documented Cardiovascular: Cardiovascular: Reports no additional cardiovascular complaints Respiratory: Respiratory: Reports no additional respiratory complaints Gastrointestinal: Gastrointestinal: Reports no additional gastrointestinal complaints Musculoskeletal: Musculoskeletal: Reports no additional musculoskeletal complaints [facility] Past Medical History Medical History (Updated 09/23/25 @ 15:04 by Faheem Bah MD) Stage 3b chronic kidney disease Cerumen impaction Otitis media Atrial flutter Irritable Scalp lesion COVID-19 Dyspnea on exertion Tachycardia Testicular hypofunction Herpes zoster without complication Thrombophlebitis Varicosities of leg Essential (primary) hypertension Mixed hyperlipidemia Stage 4 chronic kidney disease Type 2 diabetes mellitus without complications Surgical History Surgical History Hx of umbilical hernia repair H/O varicose vein ligation and stripping Family History Family History Mother Hypertension Family history of diabetes mellitus in first degree relative History of kidney cancer Diabetes mellitus Father Family history of lung cancer Family history of coronary artery disease Sibling Diabetes mellitus Cervical cancer Cerebrovascular accident Daughter No problems noted. 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) Alcohol intake: never Substance use: never Substance use type: does not use Do You Feel Safe in your Home?: Yes Lack of Transportation: No Lack of Food: Never True Current Housing: I Have Housing Concerned About Future Housing: No Difficulty Paying Gas/Electric Bills: No Difficulty Paying for Meds: No Currently Unemployed: No Education: Associate Degree Difficulty w/ Childcare or Family Care: No Living arrangements: with family Occupation/Education: retired Additional occupation/education comments: [employer] Gender identity (if verbalized by the patient): Male Spiritual care concerns: No Exam Narrative: GENERAL: Well-appearing, well-nourished, and in no acute distress. HEAD: Normocephalic, atraumatic. ENT: Mucous membranes moist. NECK: Supple. CHEST: Clear to auscultation. No respiratory distress. HEART: Regular rate and rhythm. Normal peripheral pulses. ABDOMEN: Soft, nontender, nondistended. EXTREMITIES: Normal range of motion. No edema. SKIN: Warm, dry, no rash. NEURO: Alert and oriented x3. PSYCH: Normal mood and affect. Course Course Emergency Course: Mild lower the static. Patient given 1 L IV fluid. Discussed lab work. No pneumonia on x-ray. Normal EKG. Appropriate for discharge home. Recommend holding benazepril and following up with PCP. Vital Signs Vital signs: Vital Signs Temperature 97.6 F 09/23/25 11:02 Pulse Rate 68 09/23/25 11:02 Respiratory Rate 18 09/23/25 11:02 Blood Pressure 124/68 09/23/25 11:02 Pulse Oximetry 99 09/23/25 11:02 Oxygen Delivery Room Air 09/23/25 11:02 Temperature 97.6 F 09/23/25 11:02 Pulse Rate 109 H 09/23/25 14:48 Respiratory Rate 32 H 09/23/25 14:48 Blood Pressure 102/51 L 09/23/25 14:48 Pulse Oximetry 100 09/23/25 14:48 Oxygen Delivery Room Air 09/23/25 11:02 Medical Decision Making Differential Diagnosis Differential Diagnosis: Anemia, dehydration, LEXI, electrolyte imbalance, viral syndrome Vital Signs Vital Signs: Vital Signs Temperature 97.6 F 09/23/25 11:02 Pulse Rate 68 09/23/25 11:02 Respiratory Rate 18 09/23/25 11:02 Blood Pressure 124/68 09/23/25 11:02 Pulse Oximetry 99 09/23/25 11:02 Oxygen Delivery Room Air 09/23/25 11:02 Temperature 97.6 F 09/23/25 11:02 Pulse Rate 109 H 09/23/25 14:48 Respiratory Rate 32 H 09/23/25 14:48 Blood Pressure 102/51 L 09/23/25 14:48 Pulse Oximetry 100 09/23/25 14:48 Oxygen Delivery Room Air 09/23/25 11:02 Lab Data Lab results reviewed: Yes I reviewed the patient's lab results. 09/23/25 12:14 09/23/25 12:14 Labs: Lab Results 09/23/25 09/23/25 Range/Units 12:14 13:45 WBC 7.8 (4.5-10.0) K/mm3 RBC 4.01 L (4.6-6.20) M/mm3 Hgb 12.5 L (14.0-18.0) g/dL Hct 36.5 L (42.0-52.0) % MCV 91.0 (80-100) fl MCH 31.2 (26-34) pg MCHC 34.2 (32-36) g/dl RDW 12.2 (11.5-14.5) % Plt Count 237 (150-375) k/mm3 MPV 8.6 (7.4-10.4) fl Immature Gran % (Auto) 0.5 (0-0.5) % Neut % (Auto) 72.6 (45.5-73.1) % Lymph % (Auto) 13.1 L (18.3-44.2) % Da[place]hin % (Auto) 10.9 H (2.6-8.5) % Eos % (Auto) 2.3 (0-4.4) % Baso % (Auto) 0.6 (0.2-1.2) % Lymph # (Auto) 1.02 (0.9-3.2) K/mm3 [place]hin # (Auto) 0.9 H (0.1-0.6) K/mm3 Eos # (Auto) 0.2 (0-0.3) K/mm3 Baso # (Auto) 0.1 (0.0-0.1) K/mm3 Abs Immat Gran (auto) 0.04 H (0.00-0.031) K/mm3 Absolute Neuts (auto) 5.6 (1.3-6.7) K/mm3 Absolute Nucleated RBC 0.000 (0.0-0.012) K/mm3 Nucleated RBC % 0.0 (0.0-0.2) % Sodium 130 L (137-145) mmol/L Potassium 5.0 (3.4-5.0) mmol/L Chloride 95 L (98-107) mmol/L Carbon Dioxide 26 (22-30) mmol/L Anion Gap 9 (4-12) mmol/L BUN 40 H D (9-20) mg/dL Creatinine 1.84 H (0.7-1.3) mg/dL Estim Creat Clear Calc 41 ml/min Estimated GFR 37 L (59 - ) Glucose 96 (65-110) mg/dL Calcium 10.1 (8.4-10.2) mg/dL Total Bilirubin 1.2 (0.2-1.3) mg/dL AST 28 (17-59) U/L ALT 21 (6-50) U/L Alkaline Phosphatase 49 (38-126) U/L Total Protein 7.1 (6.3-8.2) g/dL Albumin 4.5 (3.5-5.1) g/dL Urine Color Yellow (Yellow) Urine Appearance Clear (Clear) Urine pH 7.0 (5.0-9.0) Ur Specific Wagoner 1.012 (1.001-1.035) Urine Protein Negative (Negative) mg/dL Urine Glucose (UA) Negative (Negative) mg/dL Urine Ketones Negative (Negative) mg/dL Ur Blood (Man) Negative (Negative) Urine Nitrate Negative (Negative) Urine Bilirubin Negative (Negative) Urine Urobilinogen 1.0 (<2.0) mg/dL Leukocyte Esterase Rfl Negative (Negative) MEGHAN/UL Influenza A (RT-PCR) Negative (Negative) Influenza B (RT-PCR) Negative (Negative) RSV (RT-PCR) Negative (Negative) SARS-CoV-2 RNA (RT-PCR) Negative (Negative) Imaging Data Radiologist's impression: ITS Impressions Chest X-Ray 09/23/25 12:53 IMPRESSION: 1. No acute cardiopulmonary findings. ECG Data EKG #1: Attestation: I personally reviewed and interpreted this ECG as follows: ECG completion date: 09/23/25 ECG completion time: 12:11 EKG Interpretation: normal rate (74), sinus rhythm, no ectopy, normal QRS, normal QT and NL axis Discharge Plan Discharge Clinical Impression: Dehydration Patient Disposition: Home Condition: Stable Instructions: Dehydration (ED) Additional Instructions: Return ER if you have worsening weakness, you cannot keep down food or water, you lose consciousness, have additional concerns. Hold given as a pill in follow-up with your primary care physician. Patient Language: Bruneian Prescriptions: No Action multivitamin Tablet 1 tablet PO DAILY ICaps AREDS2 250 mg-200 unit -12.5 mg-1 mg capsule 1 cap PO .QD Xarelto 20 mg tablet 20 mg PO DAILY prasterone (DHEA) [DHEA] 25 mg tablet 25 mg PO .3 times a week metformin 500 mg tablet extended release 24 hr 1,000 mg PO BID Mounjaro 7.5 mg/0.5 mL pen injector 7.5 mg subcut WEEKLY amoxicillin 500 mg capsule PO metoprolol tartrate 25 mg tablet 25 mg PO BID benazepril 20 mg tablet 10 mg PO DAILY Qty: 90 1RF ferrous sulfate 27 mg iron Tablet 27 mg PO 4XW Patient Comments: alternates with DHEA magnesium 250 mg tablet 400 mg PO DAILY (DME) blood sugar diagnostic Strip See Rx Instructions .ROUTE .MEDSUPPLY Qty: 100 3RF Rx Instructions: Daily (DME) lancets Misc See Rx Instructions .Route Qty: 100 3RF Rx Instructions: Use daily to assess blood glucose bid omega-3 acid ethyl esters [Lovaza] 1 gram capsule 1 cap PO BID Qty: 180 1RF pioglitazone 30 mg tablet See Rx Instructions .ROUTE .COMPLEX Qty: 90 0RF Dose Instruction: Take 1 tablet by mouth once daily Rx Instructions: Take 1 tablet by mouth once daily atorvastatin 40 mg tablet 40 mg PO QPM Qty: 90 0RF (DME) lancets [OneTouch UltraSoft 2 Lancet] 30 gauge misc See Rx Instructions .ROUTE .COMPLEX Qty: 100 0RF Dose Instruction: USE DIRECTED TWICE DAILY Rx Instructions: USE DIRECTED TWICE DAILY Follow-up/Referrals: Naresh Johnson MD [Primary Care Provider, Family Practice] - 1 Week
[2025-09-23 13:54] LABS: Add Urine Microscopic? NO; Appearance Urine Clear (Clear); Glucose Urine UA Negative (Negative); Leukocyte Esterase Ur Negative LEU/UL (Negative); Nitrate Urine Negative (Negative); Specific Grav Ur 1.012 (1.001-1.035)
[2025-09-23 14:31] LABS: Influenza A QL RT-PCR Negative (Negative); Influenza B QL RT-PCR Negative (Negative); RSV RNA, RT-PCR Negative (Negative); SARS-CoV-2 RNA PCR Negative (Negative)
== END 2025-09-23 15:23 | disposition home or self-care (01) ==
PROVIDERS: Emergency Provider Emergency Medicine; PCP Family Medicine
DX: E86.0 Dehydration (principal); Z79.01 Long term (current) use of anticoagulants; I12.9 Hypertensive chronic kidney disease with stage 1 through stage 4 chronic kidney disease, or unspecified chronic kidney disease; N18.4 Chronic kidney disease, stage 4 (severe); E11.22 Type 2 diabetes mellitus with diabetic chronic kidney disease; Z79.85 Long-term (current) use of injectable non-insulin antidiabetic drugs; Z20.822 Contact with and (suspected) exposure to COVID-19
CPT/HCPCS: 36415; 71046; 80053; 81003; 85025; 87637; 93005; 96360; 99284; J7030